=== PATIENT | female | born 1990 | race Caucasian/White ===

== ENCOUNTER 2024-05-13 16:20 | Emergency (ER) | payer BC, SELFPAY ==
[2024-05-13 16:35] VITALS: BP 120/78; PULSE 89; RESP 18; TEMP 37; O2SAT 99
[2024-05-13 16:43] VITALS: BP 120/78; PULSE 89; RESP 18; TEMP 37; O2SAT 99
--- NOTE | 2024-05-13 17:17 | ED.URI ---
HPI - URI/Sore Throat General Chief Complaint: Upper Respiratory Infection Stated Complaint: pressure in ears/throat/head pressure Time Seen by Provider: 05/13/24 17:10 Source: patient, RN notes reviewed and old records reviewed Mode of arrival: ambulatory Limitations: no limitations History of Present Illness HPI Narrative: 33-year-old female presents to [facility] with complaints of bilateral ear pain with pressure for 2 weeks. Patient just completed oral antibiotics of amoxicillin and also is still taking Flonase nasal spray daily which she received from [place] visit she did on the 03 of May. Patient reports that she seemed to get better and then for past 4 days her symptoms have gotten worse. Patient reports that she still has some nasal congestion with drainage. MD elicited complaint: other (right ear pain) Onset (ago): day(s) (increased symptoms for 4 days initially ill 2 weeks ago) Severity: moderate Pain scale (0-10): 4 Able to tolerate fluids by mouth: Yes Treatments prior to arrival: other (completed antibiotic and continues with flonase daily) Related Data Home Medications Medication Instructions Recorded Confirmed fluticasone propionate 50 50 mcg intranasal DAILY 05/13/24 05/13/24 mcg/actuation nasal spray,suspension Allergies Allergy/AdvReac Type Severity Reaction Status Date / Time No Known Allergies Allergy Verified 05/13/24 16:42 Review of Systems Review of Systems: CONSTITUTIONAL: Denies malaise, chills, sweats, or fever. EYES: Denies visual changes, redness, or discharge. ENT: Reports rhinorrhea, congestion, sinus pain, bilateral otalgia and sore throat. CARDIOVASCULAR: Denies chest pain, palpitations, or edema. RESPIRATORY: Reports no cough.? Denies dyspnea. GASTROINTESTINAL: Denies abdominal pain, nausea, vomiting, diarrhea SKIN: Denies rash or itching. MUSCULOSKELETAL: Denies myalgia. NEUROLOGIC: Denies headache. All systems reviewed & are unremarkable except as noted in HPI and below PMFSH Social History Social History Smoking status: Never smoker Alcohol intake: never Comments At time of signature, agree with nursing past medical, surgical, social and family history. There is no relevant family history pertinent to the presenting complaint Exam Narrative: GENERAL: Well-appearing, well-nourished, and in no acute distress. HEAD: Normocephalic EYES: PERRLA, conjunctivae clear ENT: Nares clear, turbinates edematous and erythematous, clear discharge, some sinus pressure,. Mucous membranes moist Right TM red and bulging, Left. TM pearly mcginnis with dull light reflex ; no tragal tenderness. Oropharynx erythematous without lesions. Tonsils mildly enlarged and without exudate, no drooling, no hoarseness, no trismus, uvula midline.post nasal discharge noted. NECK: Supple. No lymphadenopathy CHEST: Clear to auscultation, breath sounds equal. No wheezing, rhonchi, rales, or stridor. No respiratory distress, speaks in full sentences.SAO2 99% on room air HEART: Regular rate and rhythm. No murmur heard. SKIN: Warm, dry, no rash. NEURO: Alert and oriented x3. PSYCH: Normal mood and affect Course Course Emergency Course: Patient is aware of diagnosis, understands and agrees to treatment plan.? Anticipatory guidance given.? Patient agrees to follow-up as directed and is aware of reasons to seek care at the emergency department. Portions of this record may have been created with voice recognition software Level of Care: Express Care Visit Vital Signs Vital signs: Vital Signs Temperature 37.0 C 05/13/24 16:35 Pulse Rate 89 05/13/24 16:35 Respiratory Rate 18 05/13/24 16:35 Blood Pressure 120/78 05/13/24 16:35 Pulse Oximetry 99 05/13/24 16:35 Oxygen Delivery Room Air 05/13/24 16:35 Temperature 37.0 C 05/13/24 16:43 Pulse Rate 89 05/13/24 16:43 Respiratory Rate 18 05/13/24 16:43 Blood Pressure 120/78 05/13/24 16:43 Pulse Oximetry 99 05/13/24 16:43 Oxygen Delivery Room Air 05/13/24 16:43 Reviewed MDM - URI/Sore Throat MDM Narrative Medical decision making narrative: Differential diagnosis considered: Sr virus, strep pharyngitis, allergic rhinitis, upper respiratory tract infection, sinusitis, rhinosinusitis, nasopharyngitis. viral pharyngitis, otitis media, otitis externa, pneumonia, bronchitis, viral cough syndrome, viral syndrome, and influenza.? Exam findings show no acute concerns or changes; patient is non-toxic appearing and is in no distress.? Patient is appropriate for outpatient treatment and follow-up. Differential Diagnosis Differential diagnosis: Likely upper respiratory infection, otitis media, sinusitis, viral infection and pharyngitis Medical Records Attestation: I reviewed the patient's medical records. Lab Data Attestation: I reviewed the patient's lab results. Critical Care Time Critical Care Time Critical Care Time: No Discharge Plan Discharge Clinical Impression: Otitis media, right Patient Disposition: Home, Self-Care Condition: Stable Instructions: Antibiotic Form, Ear Infection (GEN) Additional Instructions: Increase fluids especially juices and water [id number] cough and cold medicine of your choice for your symptoms Zyrtec Claritin or Jackeline daily Continue your Flonase nasal spray daily heat to the face 20-30 minutes 4-6 times a day for pain Salt water gargles, throat lozenges or throat sprays as desired Antibiotic as directed--finished the medication If your symptoms persist, change or worsen significantly before you can contact your personal physician then please, without delay, go to the emergency department for further evaluation. Follow-up with PCP in 7-10 days or sooner if needed Prescriptions: New amoxicillin-pot clavulanate 875-125 mg tablet 1 tablet PO Q12H Qty: 20 0RF No Action fluticasone propionate 50 mcg/actuation spray,suspension 50 mcg INTRANASAL DAILY Follow-up/Referrals: Bonifacio Rios MD [Primary Care Provider] - Time of Disposition: 17:23 Quality Douglas Coma Scale Eyes: Open Verbal: Oriented and Alert Motor: Follows Commands Douglas Coma Total Score: 15
== END 2024-05-13 17:25 | disposition home or self-care (01) ==
PROVIDERS: Emergency Provider Registered Nurse; PCP Family Medicine
DX: H66.91 Otitis media, unspecified, right ear (principal)
CPT/HCPCS: 99213; G0463

== ENCOUNTER 2024-06-01 09:23 | Emergency (ER) | payer BC, SELFPAY ==
[2024-06-01 09:28] VITALS: BP 107/72; PULSE 68; RESP 16; TEMP 36.6; O2SAT 100
--- NOTE | 2024-06-01 09:39 | ED.URI ---
HPI - URI/Sore Throat General Chief Complaint: Upper Respiratory Infection Stated Complaint: left ear/body aches/throat Time Seen by Provider: 06/01/24 09:59 Source: patient and RN notes reviewed Mode of arrival: ambulatory Limitations: no limitations History of Present Illness HPI Narrative: 33-year-old female presents with concern for earache, worse on the right. Reports she was treated for an ear infection at the beginning of the month. She reports she had improvements in her symptoms but did not have resolution of the fullness in her ears. Reports over the last couple days ears began hurting again with sore throat. She denies fever, aches, chills, sweats MD elicited complaint: other (ear pain) Related Data Home Medications ?Medication ?Instructions ?Recorded ?Confirmed ?Last Taken ?Type fluticasone propionate 50 50 mcg intranasal DAILY 05/13/24 06/01/24 Unknown History mcg/actuation nasal spray,suspension Allergies Allergy/AdvReac Type Severity Reaction Status Date / Time No Known Allergies Allergy Verified 06/01/24 09:52 Review of Systems Review of Systems: CONSTITUTIONAL: Denies malaise, chills, sweats, or fever. EYES: Denies visual changes, redness, or discharge. ENT: Reports rhinorrhea, congestion, otalgia and sore throat. CARDIOVASCULAR: Denies chest pain, palpitations, or edema. RESPIRATORY: Denies cough. Denies dyspnea. GASTROINTESTINAL: Denies abdominal pain, nausea, vomiting, diarrhea SKIN: Denies rash or itching. MUSCULOSKELETAL: Denies myalgia. NEUROLOGIC: Denies headache. All systems reviewed & are unremarkable except as noted in HPI and below PMFSH Social History Social History Smoking status: Never smoker Alcohol intake: never Comments At time of signature, agree with nursing past medical, surgical, social and family history. There is no relevant family history pertinent to the presenting complaint Exam Narrative: GENERAL: Well-appearing, well-nourished, and in no acute distress. HEAD: Normocephalic EYES: PERRLA, conjunctivae clear ENT: Nares clear. Mucous membranes moist. TM pearly mcginnis with dull light reflex bilaterally; no tragal tenderness. Oropharynx not erythematous without lesions. Tonsils not enlarged and without exudate, no drooling, no hoarseness, no trismus, uvula midline. NECK: Supple. No lymphadenopathy CHEST: Clear to auscultation, breath sounds equal. No wheezing, rhonchi, rales, or stridor. No respiratory distress, speaks in full sentences. HEART: Regular rate and rhythm. No murmur heard. SKIN: Warm, dry, no rash. NEURO: Alert and oriented x3. PSYCH: Normal mood and affect Course Course Emergency Course: Patient is aware of diagnosis, understands and agrees to treatment plan. Anticipatory guidance given. Patient agrees to follow-up as directed and is aware of reasons to seek care at the emergency department. Portions of this record may have been created with voice recognition software Level of Care: Express Care Visit Vital Signs Vital signs: Vital Signs Temperature 98 F 06/01/24 09:28 Pulse Rate 68 06/01/24 09:28 Respiratory Rate 16 06/01/24 09:28 Blood Pressure 107/72 06/01/24 09:28 Pulse Oximetry 100 06/01/24 09:28 Oxygen Delivery Room Air 06/01/24 09:28 Temperature 98 F 06/01/24 09:28 Pulse Rate 68 06/01/24 09:28 Respiratory Rate 16 06/01/24 09:28 Blood Pressure 107/72 06/01/24 09:28 Pulse Oximetry 100 06/01/24 09:28 Oxygen Delivery Room Air 06/01/24 09:28 Reviewed. MDM - URI/Sore Throat MDM Narrative Medical decision making narrative: Differential diagnosis considered: Sr virus, strep pharyngitis, allergic rhinitis, upper respiratory tract infection, sinusitis, rhinosinusitis, nasopharyngitis. viral pharyngitis, otitis media, otitis externa, pneumonia, bronchitis, viral cough syndrome, viral syndrome, and influenza. Exam findings show no acute concerns or changes; patient is non-toxic appearing and is in no distress. Patient is appropriate for outpatient treatment and follow-up. Lab Data Attestation: I reviewed the patient's lab results. Critical Care Time Critical Care Time Critical Care Time: No Discharge Plan Discharge Clinical Impression: Fluid level behind tympanic membrane of both ears Patient Disposition: Home, Self-Care Condition: Stable Instructions: Fluid In The Ear (Serous Otitis Media) (ED) Additional Instructions: Pseudoephedrine as directed Recommend antihistamine such as Benadryl at night time and Zyrtec or Jackeline during the day until symptoms improve Flonase nasal spray, 2 sprays in each nostril once daily until symptoms improve Also, recommend symptomatic treatment includes: rest, fluids, and increase humidity of the air at home. Recommend Acetaminophen as directed on the bottle to reduce fever, pain Please schedule a follow-up visit with your personal physician for further evaluation and treatment within 3-5days. If your symptoms persist, change or worsen significantly before you can contact your personal physician then please, without delay, go to the emergency department for further evaluation. Patient Language: Croatian Prescriptions: New pseudoephedrine HCl [12 Hour Decongestant] 120 mg tablet extended release 120 mg PO Q12H PRN (Reason: nasal congestion) Qty: 20 0RF No Action fluticasone propionate 50 mcg/actuation spray,suspension 50 mcg INTRANASAL DAILY Follow-up/Referrals: Bonifacio Rios MD [Primary Care Provider] - Time of Disposition: 10:05
--- OUTSIDE RECORDS SUMMARY | 2024-06-08 15:31 | XMS_ITS | Referral Summary ---
Author Organization [facility] [address] Address [address] [place] [address] Phone Care Team Providers Care Food Cart Attendant Name Role Phone Bonifacio Rios MD Primary Care Provider + [phone] Ashley Shaffer MD Unavailable [phone] Allergies No known active allergies Medications levonorgestreL-eth inyl estrad (LUTERA) 0.1-20 mg-mcg per tabletIndications: Surveillance of previously prescribed contraceptive pill Take 1 tablet by mouth daily Take continuousl y, each pack a 21 day supply. 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 on file Last Filed Vital Signs Vital Sign Reading Time Taken Comments Blood Pressure 118/68 06/19/2020 8:52 AM PEDIATRIC NURSE PRACTITIONER Pulse 78 04/04/2017 1:16 PM CDT Temperature 36 ??C (96.8 ??F) 06/19/2020 8:52 AM PEDIATRIC NURSE PRACTITIONER Respiratory Rate 12 04/04/2017 1:16 PM CDT Oxygen Saturation 97% 04/04/2017 1:16 PM CDT Inhaled Oxygen Concentration - - Weight 76.2 kg (168 lb) 06/19/2020 8:52 AM PEDIATRIC NURSE PRACTITIONER Height 165.1 cm (5' 5 ) 06/19/2020 8:52 AM PEDIATRIC NURSE PRACTITIONER Body Mass Index 27.96 06/19/2020 8:52 AM PEDIATRIC NURSE PRACTITIONER Plan of Treatment Not on file Insurance [facility] CHOICE PLUS [employer] O[employer] Care Teams Food Cart Attendant Relationship Specialty Start Date End Date Bonifacio Rios MD [facility] - General 09/02/12 Ashley Shaffer MD [address] [place] [address] Obstetrics and Gynecology 03/28/17
--- OUTSIDE RECORDS SUMMARY | 2024-06-08 15:31 | XMS_ITS | Encounter Summary ---
Author Organization [facility] Address [address] [place] [address] Care Team Providers Care Handkerchief Sample Clerk Name Role Phone Bonifacio Rios MD Primary Care Provider [phone] Ashley Shaffer MD Unavailable + [phone] Reason for Visit * Reason Onset Date Comments bcp refill request 05/03/2020 Encounter Details Date Type Department Care Team (Late st Contact Info) Description 05/03/2020 Telephone [facility] [address] [place] [address] Asya Choudhary BOX SPRING MAKER [address] [address] bcp refill request Social History Tobacco Use Types Packs/Day Years Used Date Smoking Tobacco: Never Smokeless Tobacco: Never Alcohol Use Standard Drinks/Week Comments Yes 0 (1 standard drink = 0.6 oz pur e alcohol) Comments No Sex and Gender Information Value Date Recorded Sex Assigned at Not on file Legal Sex Female 12:30 AM EQUAL OPPORTUNITY DIRECTOR Gender Identity Not on file Sexual Orientation Not on file 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 She uses the [facility] in [place] pharmacy. CBN [phone] L OPPORTUNITY DIRECTOR documented in this encounter Plan of Treatment Not on file documented as of this encounter Visit Diagnoses Not on filedocumented in this encounter Care Teams Handkerchief Sample Clerk Relationship Specialty Start Date End Date Bonifacio Rios MD PCP - General 09/02/12 Ashley Shaffer MD [address] [place] [address] Obstetrics and Gynecology 03/28/17 documented as of this encounter
--- OUTSIDE RECORDS SUMMARY | 2024-06-08 15:31 | XMS_ITS | Clinical Summary ---
Author Organization [facility] [address] Address [address] [place] [address] Phone Care Team Providers Care Cable Ferryboat Operator Name Role Phone Bonifacio Rios MD Primary Care Provider + [phone] Ashley Shaffer MD Unavailable [phone] Allergies No known active allergies Medications levonorgestreL-eth inyl estrad (LUTERA) 0.1-20 mg-mcg per tabletIndications: Surveillance of previously prescribed contraceptive pill Take 1 tablet by mouth daily Take continuousl y, each pack a 21 day supply. 84 tablet 5 1 Active Active Problems No known active problems Surgical History Surgery Date Site/Laterality Comments NO PAST SURGERIES Medical History Medical History Date Comments Severe dysmenorrhea 2008 controlled w ith OCP's Family History Medical History Relation Name Comments Hyperlipidemia Father Uterine cancer Maternal Grandmother Relation Name Status Comments Father Maternal Grandmother Social History Tobacco Use Types Packs/Day Years Used Date Smoking Tobacco: Never Smokeless Tobacco: Never Tobacco Cessation:Counseling Given: Yes Alcohol Use Standard Drinks/Week Comments Yes 0 (1 standard drink = 0.6 oz pur e alcohol) Comments No Sex and Gender Information Value Date Recorded Sex Assigned at Not on file Legal Sex Female 12:30 AM PROSTHETIST Gender Identity Not on file Sexual Orientation Not on file 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 on file Obstetrics History Para Term AB IAB SAB Ectopic Multiple Livin g Live Births 0 0 0 0 0 0 0 0 0 0 0 Last Filed Vital Signs Vital Sign Reading Time Taken Comments Blood Pressure 118/68 06/19/2020 8:52 AM PROSTHETIST Pulse 78 04/04/2017 1:16 PM CDT Temperature 36 ??C (96.8 ??F) 06/19/2020 8:52 AM PROSTHETIST Respiratory Rate 12 04/04/2017 1:16 PM CDT Oxygen Saturation 97% 04/04/2017 1:16 PM CDT Inhaled Oxygen Concentration - - Weight 76.2 kg (168 lb) 06/19/2020 8:52 AM PROSTHETIST Height 165.1 cm (5' 5 ) 06/19/2020 8:52 AM PROSTHETIST Body Mass Index 27.96 06/19/2020 8:52 AM PROSTHETIST Plan of Treatment Not on file Insurance [facility] CHOICE PLUS [facility] HMO/PPO Address: [address] [address] [place] [address] [employer] Care Teams Cable Ferryboat Operator Relationship Specialty Start Date End Date Bonifacio Rios MD PCP - General 09/02/12 Ashley Shaffer MD [address] [place] [address] Obstetrics and Gynecology 03/28/17
--- OUTSIDE RECORDS SUMMARY | 2024-06-08 15:31 | XMS_ITS | Encounter Summary ---
Author Organization [facility] Address [address] [place] [address] Care Team Providers Care Metal Pourer Name Role Phone Bonifacio Rios MD Primary Care Provider [phone] Ashley Shaffer MD Unavailable + [phone] Encounter Details Date Type Department Care Team (Late st Contact Info) Description 05/03/2020 Orders Only [facility] [address] [place] [address] Asya Choudhary, SUPERVISOR DIE CASTING [address] [address] Surveillance of previously prescribed contraceptive pill Social History Tobacco Use Types Packs/Day Years Used Date Smoking Tobacco: Never Smokeless Tobacco: Never Alcohol Use Standard Drinks/Week Comments Yes 0 (1 standard drink = 0.6 oz pur e alcohol) Comments No Sex and Gender Information Value Date Recorded Sex Assigned at Not on file Legal Sex Female 12:30 AM COKE BURNER Gender Identity Not on file Sexual Orientation Not on file 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 84 tablet 05/03/2020 1 documented in this encounter Plan of Treatment Not on file documented as of this encounter Visit Diagnoses Diagnosis Surveillance of previously prescribed contraceptive pill documented in this encounter Discontinued Medications Medication Sig Discontinue Reason Start Date End Da te levonorgestreL-ethinyl estrad (LUTERA) 0.1-20 mg-mcg per tabletIndications:Surveill ance of previously prescribed contraceptive pill Take 1 tablet by mouth daily Take continuously, each pack a 21 day supply. Reorder 04/10/2020 05/03/2020 documented as of this encounter Care Teams Metal Pourer Relationship Specialty Start Date End Date Bonifacio Rios MD PCP - General 09/02/12 Ashley Shaffer MD [address] [place] [address] Obstetrics and Gynecology 03/28/17 documented as of this encounter
--- OUTSIDE RECORDS SUMMARY | 2024-06-08 15:31 | XMS_ITS | Encounter Summary ---
Author Organization [facility] Address [address] [place] [address] Care Team Providers Care Pipe Setter Name Role Phone Bonifacio Rios MD Primary Care Provider [phone] Ashley Shaffer MD Unavailable + [phone] Reason for Visit * Reason Comments Gynecologic Exam Encounter Details Date Type Department Care Team (Late st Contact Info) Description 06/19/2020 9:00 AM OPHTHALMOLOGY SURGICAL TECHNICIAN Office Visit [facility] [address] [place] [phone] Asya Choudhary, HARDWARE TEST ENGINEER [address] [place] [id number] Routine gynecological examination (Primary Dx); Surveillance of previously prescribed contraceptive pill; Screening for malignant neoplasm of the cervix Social History Tobacco Use Types Packs/Day Years Used Date Smoking Tobacco: Never Smokeless Tobacco: Never Alcohol Use Standard Drinks/Week Comments Yes 0 (1 standard drink = 0.6 oz pur e alcohol) Comments No Sex and Gender Information Value Date Recorded Sex Assigned at Not on file Legal Sex Female 12:30 AM OPHTHALMOLOGY SURGICAL TECHNICIAN Gender Identity Not on file Sexual Orientation Not on file 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 on file documented as of this encounter Last Filed Vital Signs Vital Sign Reading Time Taken Comments Blood Pressure 118/68 06/19/2020 8:52 AM OPHTHALMOLOGY SURGICAL TECHNICIAN Pulse - - Temperature 36 ??C (96.8 ??F) 06/19/2020 8:52 AM OPHTHALMOLOGY SURGICAL TECHNICIAN Respiratory Rate - - Oxygen Saturation - - Inhaled Oxygen Concentration - - Weight 76.2 kg (168 lb) 06/19/2020 8:52 AM OPHTHALMOLOGY SURGICAL TECHNICIAN Height 165.1 cm (5' 5 ) 06/19/2020 8:52 AM OPHTHALMOLOGY SURGICAL TECHNICIAN Body Mass Index 27.96 06/19/2020 8:52 AM OPHTHALMOLOGY SURGICAL TECHNICIAN documented in this encounter Ordered Prescriptions Prescription Sig Dispense Quantity Refills Last Filled Start Date End Date levonorgestreL-ethi nyl estrad (LUTERA) 0.1-20 mg-mcg per tabletIndications:S urveillance of previously prescribed contraceptive pill Take 1 tablet by mouth daily Take continuously , each pack a 21 day supply. 84 tablet 5 06/19/2020 documented in this encounter Progress Notes * Asya Choudhary, HARDWARE TEST ENGINEER - 06/19/2020 9:00 AM CST Images from the original note were not included. Well Woman Exam Subjective: Iman Ashley is a 29 y.o. year old G0 who presents for annual sluice tender exam. Last Pap 05/18/18 was NILM. No h/o abnormal. Uses OCP, Lutera, for contraception and h/o menorrhagia and dysmenorrhea. She takes placebo pills every three packs with no complaints. Denies any vaginal or urinary concerns. Menstrual History: Patient's last menstrual period was 04/30/2020. Sexual History: OB History 0 Para 0 Term 0 0 AB 0 Living 0 SAB 0 TAB 0 Ectopic 0 Multiple 0 Live Births 0 Past Medical History: Diagnosis Date ??? Severe dysmenorrhea 2008 controlled with OCP's Current Outpatient Medications: ??? levonorgestreL-ethinyl estrad (LUTERA) 0.1-20 mg-mcg per tablet, Take 1 tablet by mouth daily Take continuously, each pack a 21 day supply., Disp: 84 tablet, Rfl: 5 No Known Allergies Family History Problem Relation Age of Onset ??? Hyperlipidemia Father ??? Uterine cancer Maternal Grandmother Social History Socioeconomic History ??? Marital status: Single Spouse name: None ??? Number of children: 0 ??? Years of education: None ??? Highest education level: None Occupational History ??? 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 Financial resource strain: None ??? Food insecurity Worry: None Inability: None ??? Transportation needs Medical: None Non-medical: None Tobacco Use ??? Smoking status: Never Smoker ??? Smokeless tobacco: Never Used Substance and Sexual Activity ??? Alcohol use: Yes ??? Drug use: No ??? Sexual activity: Yes Partners: Male control/protection: OCP Lifestyle ??? Physical activity Days per week: None Minutes per session: None ??? Stress: None Relationships ??? Social connections Talks on phone: None Gets together: None Attends roman catholic service: None Active member of club or organization: None Attends meetings of clubs or organizations: None Relationship status: None ??? Intimate partner violence Fear of current or ex partner: None Emotionally abused: None Physically abused: None Forced sexual activity: None Other Topics Concern ??? None Social History Narrative ??? None Review of Systems Constitutional: Negative for fatigue, fever and unexpected weight change. Respiratory: Negative for shortness of breath and wheezing. Cardiovascular: Negative for chest pain and palpitations. Gastrointestinal: Negative for abdominal pain, blood in stool, nausea and vomiting. Genitourinary: Negative for dysuria, frequency, hematuria, urgency, vaginal bleeding and vaginal discharge. Skin: Negative for rash. Objective: BP 118/68 Temp 96.8 ??F Ht 165.1 cm (5' 5 ) Wt 168 lb (76.2 kg) LMP 04/30/2020 No BMI 27.96 kg/m?? Physical Exam Constitutional: Appearance: She is well-developed. Cardiovascular: Rate and Rhythm: Normal rate and regular rhythm. Pulmonary: Effort: Pulmonary effort is normal. Breath sounds: Normal breath sounds. Chest: Breasts: Right: No mass or tenderness. Left: No mass or tenderness. Abdominal: Palpations: Abdomen is soft. Tenderness: There is no abdominal tenderness. Genitourinary: Rectum normal, vagina normal and uterus normal. Right labia: normal. Left Labia: normal. No vaginal discharge. Right adnexa: normal. Left adnexa: normal. Cervix: Normal exam. Genitourinary Comments: Pap collected. Musculoskeletal: General: No tenderness. Skin: General: Skin is warm and dry. Neurological: Mental Status: She is alert and oriented to person, place, and time. Psychiatric: Behavior: Behavior normal. Assessment and Plan: Iman Ashley is a 29 y.o. female who presents for a well woman exam. 1. Routine gynecological examination Screening guidelines reviewed. Pap collected. Mammogram ordered. Will follow up annually or prn. 2. Surveillance of previously prescribed contraceptive pill Tolerating well, will continue. - levonorgestreL-ethinyl estrad (LUTERA) 0.1-20 mg-mcg per tablet; Take 1 tablet by mouth daily Take continuously, each pack a 21 day supply. Dispense: 84 tablet; Refill: 5 Recommended screenings and preventive care discussed: Breast cancer: Self Breast Exams, Mammogram: Not indicated Pap smear: Performed Diet and exercise discussed. Contraception reviewed. Asya Choudhary NP 06/19/2020 Cosigned by Jagruti Amin MD at 06/26/2020 5:07 PM OPHTHALMOLOGY SURGICAL TECHNICIAN HALMOLOGY SURGICAL TECHNICIAN HALMOLOGY SURGICAL TECHNICIAN documented in this encounter Miscellaneous Notes * Addendum Note - Selam Feldman LPN - 06/19/2020 9:00 AM CSTAddended by: SELAM FELDMAN on: 06/19/2020 09:47 AM Modules accepted: Orders HALMOLOGY SURGICAL TECHNICIAN documented in this encounter Plan of Treatment Not on file documented as of this encounter Visit Diagnoses Diagnosis Routine gynecological examination- Primary Surveillance of previously prescribed contraceptive pill Screening for malignant neoplasm of the cervix documented in this encounter Discontinued Medications Medication Sig Discontinue Reason Start Date End Da te levonorgestreL-ethinyl estrad (LUTERA) 0.1-20 mg-mcg per tabletIndications:Surveill ance of previously prescribed contraceptive pill Take 1 tablet by mouth daily Take continuously, each pack a 21 day supply. Reorder 05/03/2020 06/19/2020 documented as of this encounter Care Teams Pipe Setter Relationship Specialty Start Date End Date Bonifacio Rios MD PCP - General 09/02/12 Ashley Shaffer MD [address] [address] Obstetrics and Gynecology 03/28/17 documented as of this encounter
--- OUTSIDE RECORDS SUMMARY | 2024-06-08 15:32 | XMS_ITS | Encounter Summary ---
Author Organization [facility] Healthcare Address [address] [place] [address] Care Team Providers Care Carpenter Name Role Phone Bonifacio Rios MD Primary Care Provider [phone] Encounter Details Date Type Department Care Team (Late st Contact Info) Description 10/12/2013 3:23 PM CDT - 10/12/2013 11:59 PM CDT Hospital Encounter [facility] Ashley Bragg MD [address] [place] [phone] Exposure to sexually transmitted disease (STD) Social History Tobacco Use Types Packs/Day Years Used Date Smoking Tobacco: Never Alcohol Use Standard Drinks/Week Comments Yes 0 (1 standard drink = 0.6 oz pur e alcohol) Comments Unknown Sex and Gender Information Value Date Recorded Sex Assigned at Not on file Legal Sex Female 12:30 AM CELL CHANGER Gender Identity Not on file Sexual Orientation Not on file documented as of this encounter Plan of Treatment Not on file documented as of this encounter Visit Diagnoses Diagnosis Exposure to sexually transmitted disease (STD) Contact with or exposure to venereal diseases documented in this encounter Care Teams Carpenter Relationship Specialty Start Date End Date Bonifacio Rios MD PCP - General 09/02/12 documented as of this encounter
--- OUTSIDE RECORDS SUMMARY | 2024-06-08 15:32 | XMS_ITS | Encounter Summary ---
Author Organization [facility] Care Team Providers Care Quantitative Associate Name Role Phone Bonifacio Rios MD Primary Care Provider [phone] Ashley Shaffer MD Unavailable [phone] Encounter Details Date Type Department Care Team (Latest Contact Info) Description 06/15/2019 Travel Social History Tobacco Use Types Packs/Day Years Used Date Smoking Tobacco: Never Smokeless Tobacco: Never Alcohol Use Standard Drinks/Week Comments Yes 0 (1 standard drink = 0.6 oz pur e alcohol) Comments No Sex and Gender Information Value Date Recorded Sex Assigned at Not on file Legal Sex Female 12:30 AM FIRE TOWER KEEPER Gender Identity Not on file Sexual Orientation Not on file 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
--- OUTSIDE RECORDS SUMMARY | 2024-06-08 15:32 | XMS_ITS | Encounter Summary ---
Author Organization [facility] Address [address] [place] [address] Care Team Providers Care Registered Safety Engineer Name Role Phone Bonifacio Rios MD Primary Care Provider [phone] Ashley Shaffer MD Unavailable + [phone] Encounter Details Date Type Department Care Team (Late st Contact Info) Description 06/11/2019 Orders Only [facility] [address] [place] [phone] Asya Choudhary, PROFESSOR OF LATIN AMERICAN STUDIES [address] [address] Social History Tobacco Use Types Packs/Day Years Used Date Smoking Tobacco: Never Smokeless Tobacco: Never Alcohol Use Standard Drinks/Week Comments Yes 0 (1 standard drink = 0.6 oz pur e alcohol) Comments No Sex and Gender Information Value Date Recorded Sex Assigned at Not on file Legal Sex Female 12:30 AM CLINICAL RN MANAGER Gender Identity Not on file Sexual Orientation Not on file 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 on file documented as of this encounter Ordered Prescriptions Prescription Sig Dispense Quantity Refills Last Filled Start Date End Date levonorgestrel-eth inyl estrad (LUTERA) 0.1-20 mg-mcg per tablet Take 1 tablet by mouth daily 28 tablet 06/11/2019 06/15/2019 documented in this encounter Plan of Treatment Not on file documented as of this encounter Visit Diagnoses Not on filedocumented in this encounter Discontinued Medications Medication Sig Discontinue Reason Start Date End Da te levonorgestrel-ethinyl estrad (LUTERA) 0.1-20 mg-mcg per tablet Take 1 tablet by mouth daily Reorder 05/24/2019 06/11/2019 documented as of this encounter Care Teams Registered Safety Engineer Relationship Specialty Start Date End Date Bonifacio Rios MD PCP - General 09/02/12 Ashley Shaffer MD [address] [place] [address] Obstetrics and Gynecology 03/28/17 documented as of this encounter
--- OUTSIDE RECORDS SUMMARY | 2024-06-08 15:32 | XMS_ITS | Encounter Summary ---
Author Organization [facility] Healthcare Address [address] [place] [address] Care Team Providers Care It Infrastructure Engineer Name Role Phone Bonifacio Rios MD Primary Care Provider [phone] Encounter Details Date Type Department Care Team (Late st Contact Info) Description 10/12/2013 8:00 PM CDT - 10/12/2013 11:59 PM CDT Hospital Encounter CH Ashley Bragg MD [address] [place] [address] Screening for malignant neoplasm of cervix Social History Tobacco Use Types Packs/Day Years Used Date Smoking Tobacco: Never Alcohol Use Standard Drinks/Week Comments Yes 0 (1 standard drink = 0.6 oz pur e alcohol) Comments Unknown Sex and Gender Information Value Date Recorded Sex Assigned at Not on file Legal Sex Female 12:30 AM HARNESS MENDER Gender Identity Not on file Sexual Orientation Not on file documented as of this encounter Plan of Treatment Not on file documented as of this encounter Procedures Procedure Name Priority Date/Time Associated Diagnosis Comments GENITAL FLUID GONORRHEA AMPLIFIED RNA, LIQUID THIN LAYER Routine 10/12/2013 2:30 PM CDT GENITAL FLUID CHLAMYDIA AMPLIFIED RNA, LIQUID THIN LAYER Routine 10/12/2013 2:30 PM CDT CYTOLOGY 10/12/2013 documented in this encounter Results * Genital fluid Chlamydia Amplified RNA, liquid thin layer (10/12/2013 2:30 PM CDT) Chlamydia trachomatis, PCR, genital swab Negative Negative HISTORICAL RESULTS Comment: This test has been developed to maximize the sensitivity of detection of infection while minimizing false positives, with the combined goals of enabling treatment of infection and interrupting the spread of infection, and is intended for medical purposes. Any result should be interpreted together with the clinical presentation and risk assessment, particularly the prevalence of infection in the patient's demographic group. ??Significant discrepancies should be evaluated by additional measures. Genital 10/12/2013 2:30 PM CDT Ashley Shaffer MD LAB BLOOD ORDERABLE S Final Result Performing Organization Address [facility] Phone Number HISTORICAL RESULTS * Genital fluid Gonorrhea amplified RNA, liquid thin layer (10/12/2013 2:30 PM CDT) Gonorrheae (GC) DNA, thin prep Negative Negative HISTORICAL RESULTS Comment: This test has been developed to maximize the sensitivity of detection of infection while minimizing false positives, with the combined goals of enabling treatment of infection and interrupting the spread of infection, and is intended for medical purposes. Any result should be interpreted together with the clinical presentation and risk assessment, particularly the prevalence of infection in the patient's demographic group. ??Significant discrepancies should be evaluated by additional measures. Genital 10/12/2013 2:30 PM CDT Ashley Shaffer MD LAB BLOOD ORDERABLE S Final Result Performing Organization Address [facility] de Phone Number HISTORICAL RESULTS * Cytology (10/12/2013) Narrative 10/12/2013 Ordered by an unspecified provider. [facility] Provider LAB CYTOLOGY ORDERABLES F inal Result documented in this encounter Visit Diagnoses Diagnosis Screening for malignant neoplasm of cervix Screening for malignant neoplasm of the cervix documented in this encounter Care Teams It Infrastructure Engineer Relationship Specialty Start Date End Date Bonifacio Rios MD PCP - General 09/02/12 documented as of this encounter
--- OUTSIDE RECORDS SUMMARY | 2024-06-08 15:32 | XMS_ITS | Encounter Summary ---
Author Organization [facility] Healthcare Address [address] [place] [address] Care Team Providers Care Jack Winder Name Role Phone Bonifacio Rios MD Primary Care Provider [phone] Ashley Shaffer MD Unavailable + [phone] Reason for Visit * Diagnostic Lab (Routine) - Closed Specialty Diagnoses / Procedures Referred By James mitchell Referred To Contact Lab Diagnoses Cervical cancer screening Procedures Cytology Ashley Shaffer MD Phone: tel: fax: Referral ID Status Reason Start Date Expiration Date Visits Re quested Visits Authorized [id number] Closed 05/18/2018 11/27/2019 1 1 Encounter Details Date Type Department Care Team (Late st Contact Info) Description 05/19/2018 Orders Only [address] [address] Ashley Shaffer MD [address] [place] [phone] Cervical cancer screening Social History Tobacco Use Types Packs/Day Years Used Date Smoking Tobacco: Never Smokeless Tobacco: Never Alcohol Use Standard Drinks/Week Comments Yes 0 (1 standard drink = 0.6 oz pur e alcohol) Comments No Sex and Gender Information Value Date Recorded Sex Assigned at Not on file Legal Sex Female 12:[address] INTERPRETER Gender Identity Not on file Sexual Orientation Not on file 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 [address] INTERPRETER documented in this encounter Plan of Treatment Not on file documented as of this encounter Procedures Procedure Name Priority Date/Time Associated Diagnosis Comments CYTOLOGY Routine 05/18/2018 12:[address] INTERPRETER Cervical cancer screening documented in this encounter Results * Cytology (05/18/2018 12:[address] INTERPRETER) Fluid 05/18/2018 12:[address] INTERPRETER 05/18/2018 12:[address] INTERPRETER Narrative PATHOLOGY - 05/20/2018 4:[address] INTERPRETER [facility] Department of Pathology [address] [place] [address] Final Report Patient Name: ??IMAN HORNKimberlyn Address: ??[address], ?? [place], [place] ??[address] Gender: ??F : ??1990 (Age: 27) Service: ??Laboratory Location: ??Lab Hospital #: ??[id number] Patient Type: ?? Ref Lab Taken: ??05/18/2018 Received: ??05/18/2018 Accessioned:: ??05/19/2018 Reported: ??05/20/2018 Physician(s): Dr. Ashley Shaffer M.D. Dr. Ashley Shaffer M.D. Diagnosis: Source of Specimen: ? SCREENING IMAGED PAP w/ Reflex HPV Specimen Adequacy: ?- Satisfactory for evaluation; endocervical/transformation zone component present General Category: ?- Negative for intraepithelial lesion or malignancy ?? AMBREEN Carr(ASCP) AMBREEN Conrad(ASCP) Report Electronically Reviewed and Signed Out By ??AMBREEN Conrad(ASCP) ??05/20/2018 16:39:32 Specimen(s) Received: A: SCREENING IMAGED PAP w/ Reflex HPV Clinical History: Last Menstrual Period: 05/10/18 The Pap test is a screening test used to aid in the detection of cervical cancer and its precursors. ??It should not be the sole means by which malignant and premalignant lesions are diagnosed. ??Both false negative and false positive results may occur. ?? It also has poor sensitivity for the detection of endometrial lesions and should not be used to evaluate suspected endometrial abnormalities. ??For these reasons it is most important to obtain Pap tests at regular intervals. The performance characteristics of some immunohistochemical stains, fluorescence in-situ hybridization tests and immunophenotyping by flow cytometry cited in this report (if any) were determined by the Surgical Pathology Department at [facility] as part of an ongoing quality system manager program and in compliance with federally mandated regulations drawn from the Clinical Laboratory Improvement Act of 1988 (CLIA '88). ??Some of these tests rely on the use of analyte specific reagents and are subject to specific labeling requirements by the US Food and Drug Administration. ??Such diagnostic tests may only be performed in a facility that is certified by the Department of Health and Human Services as a high complexity laboratory under CLIA '88. The FDA has determined that such clearance or approval is not necessary. ??This test is used for clinical purposes. ??It should not be regarded as investigational or for research. ??Nevertheless, federal rules concerning the medical use of analyte specific reagents require that the following disclaimer be attached to the report: This test was developed and its performance characteristics determined by the Surgical Pathology Department [facility]. ??It has not been cleared or approved by the U. S. Food and Drug Administration. Ashley Shaffer MD LAB CYTOLOGY ORDERA BLES Final Result PATHOLOGY [address] [place] [address] documented in this encounter Visit Diagnoses Diagnosis Cervical cancer screening Screening for malignant neoplasm of the cervix documented in this encounter Care Teams Jack Winder Relationship Specialty Start Date End Date Bonifacio Rios MD PCP - General 09/02/12 Ashley Shaffer MD [address] [place] [address] Obstetrics and Gynecology 03/28/17 documented as of this encounter
--- OUTSIDE RECORDS SUMMARY | 2024-06-08 15:32 | XMS_ITS | Encounter Summary ---
Author Organization [facility] Healthcare Address [address] [place] [address] Care Team Providers Care Suction Worker Name Role Phone Bonifacio Rios MD Primary Care Provider [phone] Ashley Shaffer MD Unavailable + [phone] Encounter Details Date Type Department Care Team (Late st Contact Info) Description 04/04/2017 7:28 PM CDT - 04/04/2017 11:59 PM CDT Hospital Encounter [facility] OP INTERIM Ashley Shaffer MD [address] [place] [phone] Discharge Disposition: Discharge to home or self care Social History Tobacco Use Types Packs/Day Years Used Date Smoking Tobacco: Never Smokeless Tobacco: Never Alcohol Use Standard Drinks/Week Comments Yes 0 (1 standard drink = 0.6 oz pur e alcohol) Comments No Sex and Gender Information Value Date Recorded Sex Assigned at Not on file Legal Sex Female 12:30 AM HOEING ROW BOSS Gender Identity Not on file Sexual Orientation Not on file 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 84 tablet 4 04/04/2017 04/04/2018 documented as of this encounter Discharge Disposition Disposition Code Departure Means Destination Discharge to home or self care documented in this encounter Plan of Treatment Not on file documented as of this encounter Procedures Procedure Name Priority Date/Time Associated Diagnosis Comments GONORRHEA DNA, THIN PREP Routine 04/04/2017 7:29 PM CDT CHLAMYDIA DNA, THIN PREP Routine 04/04/2017 7:29 PM CDT CYTOLOGY Routine 04/04/2017 9:52 AM CDT CYTOLOGY 04/04/2017 12:00 AM CDT documented in this encounter Results * Gonorrhea DNA, Thin Prep (04/04/2017 7:29 PM CDT) Gonorrheae (GC) DNA, thin prep Negative Negative [facility] Comment: Interpretive Data This test has been developed to maximize [...] discrepancies should be evaluated by additional measures. Current Interpretive Data was last revised on 2015 Thin prep 04/04/2017 7:29 PM CDT 04/04/2017 7:29 PM CDT Ashley Shaffer MD LAB BLOOD ORDERABLE S Final Result [facility] [address] Department [place] [address] * Chlamydia DNA, Thin Prep (04/04/2017 7:29 PM CDT) Chlamydia Amplified RNA, Liquid-based pap Negative Negative [facility] Comment: Interpretive Data This test has been developed to maximize [...] discrepancies should be evaluated by additional measures. Current Interpretive Data was last revised on 2015 Thin prep 04/04/2017 7:29 PM CDT 04/04/2017 7:29 PM CDT Ashley Shaffer MD LAB BLOOD ORDERABLE S Final Result [facility] [address] Department [place] [address] * Cytology (04/04/2017 9:52 AM CDT) 04/04/2017 9:52 AM CDT 04/04/2017 9:52 AM CDT Narrative 04/08/2017 12:18 PM CDT [facility] Department of Pathology [address] [place], [place] [id number] Final Report ?Patient Name: IMAN HORN [address]: [address] [place] [address] Service: Laboratory ??[place], [place] ??[id number] Location: Lab Taken: 04/04/2017 Gender: F Received 04/04/2017 : 1990 (Age: 26) Hospital #: [id number] Accessioned: 04/07/2017 ?? Patient Type: [facility] Lab Reported 04/08/2017 Physician(s): Dr. Ashley Shaffer M.D. Dr. Ashley Shaffer M.D. ?? Diagnosis: Source of Specimen: ? SCREENING IMAGED PAP w/ Reflex HPV Specimen Adequacy: ?- Specimen satisfactory for interpretation; endocervical/transformation zone component absent or ?insufficient General Category: ?- Negative for intraepithelial lesion or malignancy ?? Sarah Jacob CT(ASCP) AMBREEN Conrad(ASCP) Report Electronically Reviewed and Signed Out By ??AMBREEN Conrad(ASCP) ??04/08/2017 12:18:55 Specimen(s) Received: A: SCREENING IMAGED PAP w/ Reflex HPV Clinical History: Last Menstrual Period: 03/16/17 Menstrual History: Routine Checkup Contraceptive History: Oral Contraceptives The Pap test is a screening test [...] determined by the Surgical Pathology Department at [facility] as part of an ongoing quality control inspector program and in compliance with federally mandated [...] characteristics determined by the Surgical Pathology Department [facility]. ??It has not been cleared or approved by the U. S. Food and Drug Administration. Ashley Shaffer MD LAB CYTOLOGY ORDERA BLES Final Result * CYTOLOGY (04/04/2017 12:00 AM CDT) Narrative 04/04/2017 12:00 AM CDT Ordered by an unspecified provider. Historical Provider LAB CYTOLOGY ORDERABLES F inal Result documented in this encounter Visit Diagnoses Not on filedocumented in this encounter Care Teams Suction Worker Relationship Specialty Start Date End Date Bonifacio Rios MD PCP - General 09/02/12 Ashley Shaffer MD [address] [place] [address] Obstetrics and Gynecology 03/28/17 documented as of this encounter
--- OUTSIDE RECORDS SUMMARY | 2024-06-08 15:32 | XMS_ITS | Encounter Summary ---
Author Organization [facility] Address [address] [facility] [address] [place] [address] Care Team Providers Care Nut Processing Supervisor Name Role Phone Bonifacio Rios MD Primary Care Provider + [phone] Ashley Shaffer MD Unavailable [phone] Reason for Referral * Diagnostic Lab (Routine) - Closed Specialty Diagnoses / Procedures Referred By James mitchell Referred To Contact Lab Diagnoses Cervical cancer screening Procedures Cytology Ashley Shaffer MD Phone: tel: fax: Referral ID Status Reason Start Date Expiration Date Visits Re quested Visits Authorized [id number] Closed 05/18/2018 11/27/2019 1 1 CORPORATE MANAGER Reason for Visit * Reason Comments Gynecologic Exam Encounter Details Date Type Department Care Team (Late st Contact Info) Description 05/18/2018 2:00 PM BODY CORPORATE MANAGER Office Visit [facility] [address] [place] [address] Ashley Shaffer MD [address] [place] [phone] Encounter for gynecological examination (Primary Dx); Cervical cancer screening Social History Tobacco Use Types Packs/Day Years Used Date Smoking Tobacco: Never Smokeless Tobacco: Never Tobacco Cessation:Counseling Given: Yes Alcohol Use Standard Drinks/Week Comments Yes 0 (1 standard drink = 0.6 oz pur e alcohol) Comments No Sex and Gender Information Value Date Recorded Sex Assigned at Not on file Legal Sex Female 12:30 AM BODY CORPORATE MANAGER Gender Identity Not on file Sexual Orientation Not on file 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 on file documented as of this encounter Last Filed Vital Signs Vital Sign Reading Time Taken Comments Blood Pressure 110/80 05/18/2018 1:52 PM BODY CORPORATE MANAGER Pulse - - Temperature - - Respiratory Rate - - Oxygen Saturation - - Inhaled Oxygen Concentration - - Weight 67.6 kg (149 lb) 05/18/2018 1:52 PM BODY CORPORATE MANAGER Height 162.6 cm (5' 4 ) 05/18/2018 1:52 PM BODY CORPORATE MANAGER Body Mass Index 25.58 05/18/2018 1:52 PM BODY CORPORATE MANAGER documented in this encounter Ordered Prescriptions Prescription Sig Dispense Quantity Refills Last Filled Start Date End Date levonorgestrel-eth inyl estrad (AVIANE,LESSINA) 0.1-20 mg-mcg per tablet Take 1 tablet by mouth daily. 84 tablet 4 05/18/2018 05/24/2019 documented in this encounter Progress Notes * Ashley Shaffer - 05/18/2018 2:00 PM CST Images from the original note were not included. Assessment: ICD-9-CM ICD-10-CM 1. Encounter for gynecological examination V72.31 Z01.419 Plan: ?? Pap smear obtained. ?? Renewed Rx for Aviane OCP's. HPI: Iman is a 27 y.o. SWF G0, who presents for annual exam. She has a history of menorrhagia and severe dysmenorrhea, which is well-controlled with OCP's. She denies any other demand planning analyst concerns. History: I have updated the EPIC record to reflect current allergies, medications, medical history, surgicalhistory, social history, family history, and the active problem list. Past Medical History: Diagnosis Date ??? Severe dysmenorrhea 2008 controlled with OCP's Past Surgical History: Procedure Laterality Date ??? NO PAST SURGERIES Social History Social History ??? Marital status: Single Spouse name: N/A ??? Number of children: 0 ??? 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 Smoking status: Never Smoker ??? Smokeless tobacco: Never Used ??? Alcohol use Yes ??? Drug use: No ??? Sexual activity: Yes Partners: Male control/ protection: OCP Family History Problem Relation Age of Onset ??? Hyperlipidemia Father ??? Uterine cancer Maternal Grandmother Allergies: No Known Allergies Medications: Current Outpatient Prescriptions: ??? levonorgestrel-ethinyl estrad (AVIANE,LESSINA) 0.1-20 mg-mcg per tablet, Take 1 tablet by mouthdaily., Disp: 84 tablet, Rfl: 4 Review of Systems: The patient-completed Review of Systems was reviewed and was scanned as an attachment to this encounter. Physical Exam: Patient's last menstrual period was 05/10/2018. Wt Readings from Last 3 Encounters: 05/18/18 149 lb (67.6 kg) 04/04/17 137 lb (62.1 kg) 03/15/16 126 lb (57.2 kg) Body mass index is 25.58 kg/m??. Vitals: 05/18/18 1352 BP: 110/80 Weight: 149 lb (67.6 kg) Height: 162.6 cm (5' 4 ) General: WNWD female in NAD. Mental status: Alert and oriented X 3, with calm, cooperative affect. HEENT: Normocephalic. Neck: Supple, without masses or thyromegaly. Lungs: CTA. Heart:: RRR, without abnormal sounds. Breasts: No masses, nipple discharge, or skin dimpling. Abdomen: Soft, non-distended. No masses, tenderness, or hernias. Lymph nodes: No lymphadenopathy in axillary, inguinal, or supraclavicular regions. Skin: Warm and dry, without abnormal rashes or suspicious moles on examined skin. Pelvic exam: External genitalia: Normale female. No external lesions. Anus and perineum: Intact. No visible lesions. Urethral meatus: Slay[place], without prolapse or lesions. Vagina: [place], well-rugated. Cervix: [place]; os closed. No visible lesions. Friable. Uterus: No palpable abnormalities. Adnexa: No palpable masses or tenderness. Bladder and urethra: Nontender, without masses. Ashley Shaffer MD CORPORATE MANAGER documented in this encounter Miscellaneous Notes * Addendum Note - Alecia Muhammad MA - 05/18/2018 2:00 PM CSTAddended by: ALECIA MUHAMMAD on: 05/18/2018 02:06 PM Modules accepted: Orders CORPORATE MANAGER documented in this encounter Plan of Treatment Not on file documented as of this encounter Results * Cytology (05/18/2018 12:30 PM BODY CORPORATE MANAGER) Fluid 05/18/2018 12:3 0 PM BODY CORPORATE MANAGER 05/18/2018 12:30 PM BODY CORPORATE MANAGER Narrative PATHOLOGY CH - 05/20/2018 4:39 PM BODY CORPORATE MANAGER [facility] Department of Pathology [address] [place], [place] [id number] Final Report Patient Name: ??IMAN HORN Address: ??[facility], ?? [place], [place] ??[address] Gender: ??F : ??1990 (Age: 27) Service: ??Laboratory Location: ??Lab Hospital #: ??[id number] Patient Type: ?? Ref Lab Taken: ??05/18/2018 [...] determined by the Surgical Pathology Department at [facility] as part of an ongoing air quality consultant program and in compliance with federally mandated [...] characteristics determined by the Surgical Pathology Department [facility]. ??It has not been cleared or approved by the U. S. Food and Drug Administration. Ashley Shaffer MD LAB CYTOLOGY ORDERA BLES Final Result PATHOLOGY [address] [place] [address] documented in this encounter Visit Diagnoses Diagnosis Encounter for gynecological examination- Primary Cervical cancer screening Screening for malignant neoplasm of the cervix Cervical cancer screening Screening for malignant neoplasm of the cervix documented in this encounter Discontinued Medications Medication Sig Discontinue Reason Start Date End Da te levonorgestrel-ethinyl estrad (AVIANE,LESSINA) 0.1-20 mg-mcg per tablet Take 1 tablet by mouth daily. Reorder 05/14/2018 05/18/2018 documented as of this encounter Care Teams Nut Processing Supervisor Relationship Specialty Start Date End Date Bonifacio Rios MD PCP - General 09/02/12 Ashley Shaffer MD [address] [place] [address] Obstetrics and Gynecology 03/28/17 documented as of this encounter
--- OUTSIDE RECORDS SUMMARY | 2024-06-08 15:32 | XMS_ITS | Encounter Summary ---
Author Organization [facility] Address [address] [facility] [address] [place] [address] Care Team Providers Care County Health Officer Name Role Phone Bonifacio Rios MD Primary Care Provider [phone] Ashley Shaffer MD Unavailable + [phone] Reason for Visit * Reason Comments Gynecologic Exam Encounter Details Date Type Department Care Team (Late st Contact Info) Description 06/15/2019 9:00 AM ORAL AND MAXILLOFACIAL SURGERY RESIDENT Office Visit [facility] [address] [place] [phone] Asya Choudhary, BODY AND FENDER MECHANIC APPRENTICE [address] [place] [phone] Routine gynecological examination (Primary Dx); Surveillance of previously prescribed contraceptive pill Social History Tobacco Use Types Packs/Day Years Used Date Smoking Tobacco: Never Smokeless Tobacco: Never Tobacco Cessation:Counseling Given: Yes Alcohol Use Standard Drinks/Week Comments Yes 0 (1 standard drink = 0.6 oz pur e alcohol) Comments No Sex and Gender Information Value Date Recorded Sex Assigned at Not on file Legal Sex Female 12:30 AM ORAL AND MAXILLOFACIAL SURGERY RESIDENT Gender Identity Not on file Sexual Orientation Not on file 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 on file documented as of this encounter Last Filed Vital Signs Vital Sign Reading Time Taken Comments Blood Pressure 120/78 06/15/2019 8:57 AM ORAL AND MAXILLOFACIAL SURGERY RESIDENT Pulse - - Temperature - - Respiratory Rate - - Oxygen Saturation - - Inhaled Oxygen Concentration - - Weight 73.5 kg (162 lb) 06/15/2019 8:57 AM ORAL AND MAXILLOFACIAL SURGERY RESIDENT Height 162.6 cm (5' 4 ) 06/15/2019 8:57 AM ORAL AND MAXILLOFACIAL SURGERY RESIDENT Body Mass Index 27.81 06/15/2019 8:57 AM ORAL AND MAXILLOFACIAL SURGERY RESIDENT documented in this encounter Ordered Prescriptions Prescription Sig Dispense Quantity Refills Last Filled Start Date End Date levonorgestrel-ethi nyl estrad (LUTERA) 0.1-20 mg-mcg per tabletIndications:S urveillance of previously prescribed contraceptive pill Take 1 tablet by mouth daily Take continuously , each pack a 21 day supply. 84 tablet 3 06/15/2019 0 documented in this encounter Progress Notes * Asya Choudhary, BODY AND FENDER MECHANIC APPRENTICE - 06/15/2019 9:00 AM CST Images from the original note were not included. Well Woman Exam Subjective: Iman Ashley is a 28 y.o. 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 Last Pap 05/18/18 was NILM. Uses OCP, Lutera, for contraception and h/o menorrhagia and dysmenorrhea. She takes tablets continuously and has an acceptable menses every three months. Denies any vaginal or urinary concerns. Menstrual History: Patient's last menstrual period was 04/04/2019 (exact date). Sexual History: OB History 0 Para 0 Term 0 0 AB 0 Living 0 SAB 0 TAB 0 Ectopic 0 Multiple 0 Live Births 0 Past Medical History: Diagnosis Date ??? Severe dysmenorrhea 2008 controlled with OCP's Current Outpatient Medications: ??? levonorgestrel-ethinyl estrad (LUTERA) 0.1-20 mg-mcg per tablet, Take 1 tablet by mouth daily Take continuously, each pack a 21 day supply., Disp: 84 tablet, Rfl: 3 No Known Allergies Family History Problem Relation Age of Onset ??? Hyperlipidemia Father ??? Uterine cancer Maternal Grandmother Social History Socioeconomic History ??? Marital status: Single Spouse name: None ??? Number of children: 0 ??? Years of education: None ??? Highest education level: None Occupational History ??? 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 Financial resource strain: None ??? Food insecurity: Worry: None Inability: None ??? Transportation needs: Medical: None Non-medical: None Tobacco Use ??? Smoking status: Never Smoker ??? Smokeless tobacco: Never Used Substance and Sexual Activity ??? Alcohol use: Yes ??? Drug use: No ??? Sexual activity: Yes Partners: Male control/protection: OCP Lifestyle ??? Physical activity: Days per week: None Minutes per session: None ??? Stress: None Relationships ??? Social connections: Talks on phone: None Gets together: None Attends advent service: None Active member of club or organization: None Attends meetings of clubs or organizations: None Relationship status: None ??? Intimate partner violence: Fear of current or ex partner: None [...] discharge. Skin: Negative for rash. Objective: BP 120/78 Ht 162.6 cm (5' 4 ) Wt 162 lb (73.5 kg) LMP 04/04/2019 (Exact Date) BMI 27.81 kg/m?? Physical Exam Constitutional: Appearance: She is well-developed. Cardiovascular: Rate and Rhythm: Normal rate and regular rhythm. Pulmonary: Effort: Pulmonary effort is normal. Breath sounds: Normal breath sounds. Chest: Breasts: Right: No mass or tenderness. Left: No mass or tenderness. Abdominal: Palpations: Abdomen is soft. Tenderness: There is no tenderness. Genitourinary: Rectum normal, vagina normal and uterus normal. Right labia: normal. Left Labia: normal. No vaginal discharge. Right adnexa: normal. Left adnexa: normal. Cervix: Normal exam. Musculoskeletal: General: No tenderness. Skin: General: Skin is warm and dry. Neurological: Mental Status: She is alert and oriented to person, place, and time. Psychiatric: Behavior: Behavior normal. Assessment and Plan: Iman Ashley is a 28 y.o. female who presents for a well woman exam. 1. Routine gynecological examination Screening guidelines reviewed. Pap due by 2020. Will follow up annually or prn. 2. Surveillance of previously prescribed contraceptive pill Tolerating well, will continue to take placebo pills every 3 months. - levonorgestrel-ethinyl estrad (LUTERA) 0.1-20 mg-mcg per tablet; Take 1 tablet by mouth daily Take continuously, each pack a 21 day supply. Dispense: 84 tablet; Refill: 3 Recommended screenings and preventive care discussed: Breast cancer: Self Breast Exams, Mammogram: Not indicated Pap smear: Not Indicated Diet and exercise discussed. Contraception reviewed. Asya Choudhary NP 06/15/2019 Cosigned by Jagruti Amin MD at 06/15/2019 11:02 AM ORAL AND MAXILLOFACIAL SURGERY RESIDENT AND MAXILLOFACIAL SURGERY RESIDENT AND MAXILLOFACIAL SURGERY RESIDENT documented in this encounter Plan of Treatment Not on file documented as of this encounter Visit Diagnoses Diagnosis Routine gynecological examination- Primary Surveillance of previously prescribed contraceptive pill documented in this encounter Discontinued Medications Medication Sig Discontinue Reason Start Date End Da te levonorgestrel-ethinyl estrad (LUTERA) 0.1-20 mg-mcg per tablet Take 1 tablet by mouth daily Reorder 06/11/2019 06/15/2019 documented as of this encounter Care Teams County Health Officer Relationship Specialty Start Date End Date Bonifacio Rios MD PCP - General 09/02/12 Ashley Shaffer MD [address] [place] [address] Obstetrics and Gynecology 03/28/17 documented as of this encounter
--- OUTSIDE RECORDS SUMMARY | 2024-06-08 15:32 | XMS_ITS | Encounter Summary ---
Author Organization [facility] Address [address] [place] [address] Phone Care Team Providers Care Tread Cutter Name Role Phone Bonifacio Rios MD Primary Care Provider + [phone] Ashley Shaffer MD Unavailable + [phone] Encounter Details Date Type Department Care Team (Late st Contact Info) Description 04/14/2017 Telephone [facility] [address] [place] [address] Bronwyn Feldman LPN Social History Tobacco Use Types Packs/Day Years Used Date Smoking Tobacco: Never Smokeless Tobacco: Never Alcohol Use Standard Drinks/Week Comments Yes 0 (1 standard drink = 0.6 oz pur e alcohol) Comments No Sex and Gender Information Value Date Recorded Sex Assigned at Not on file Legal Sex Female 12:30 AM HARNESS BUILDER Gender Identity Not on file Sexual Orientation Not on file 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 ESS BUILDER * Telephone Encounter - Bronwyn Feldman LPN - 04/14/2017 10:02 AM HARNESS BUILDER ----- Message from Ashley Shaffer MD sent at 04/13/2017 7:57 AM HARNESS BUILDER ----- Normal pap. ESS BUILDER documented in this encounter Plan of Treatment Not on file documented as of this encounter Visit Diagnoses Not on filedocumented in this encounter Care Teams Tread Cutter Relationship Specialty Start Date End Date Bonifacio Rios MD PCP - General 09/02/12 Ashley Shaffer MD [address] [place] [address] Obstetrics and Gynecology 03/28/17 documented as of this encounter
--- OUTSIDE RECORDS SUMMARY | 2024-06-08 15:32 | XMS_ITS | Encounter Summary ---
Author Organization [facility] Address [address] [place] [address] Phone Care Team Providers Care Clerk Telegraph Service Name Role Phone Bonifacio Rios MD Primary Care Provider [phone] Ashley Shaffer MD Unavailable [phone] Reason for Visit * Reason Comments Gynecologic Exam Encounter Details Date Type Department Care Team (Late st Contact Info) Description 04/04/2017 1:10 PM CDT Office Visit [facility] [address] [place] [address] Ashley Shaffer MD [address] [address] Encounter for gynecological examination (Primary Dx) Social History Tobacco Use Types Packs/Day Years Used Date Smoking Tobacco: Never Smokeless Tobacco: Never Tobacco Cessation:Counseling Given: Yes Alcohol Use Standard Drinks/Week Comments Yes 0 (1 standard drink = 0.6 oz pur e alcohol) Comments No Sex and Gender Information Value Date Recorded Sex Assigned at Not on file Legal Sex Female 12:30 AM FLEET MANAGER Gender Identity Not on file Sexual Orientation Not on file 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 on file documented as of this encounter Last Filed Vital Signs Vital Sign Reading Time Taken Comments Blood Pressure 110/80 04/04/2017 1:16 PM CDT Pulse 78 04/04/2017 1:16 PM CDT Temperature - - Respiratory Rate 12 04/04/2017 1:16 PM CDT Oxygen Saturation 97% 04/04/2017 1:16 PM CDT Inhaled Oxygen Concentration - - Weight 62.1 kg (137 lb) 04/04/2017 1:16 PM CDT Height 162.6 cm (5' 4 ) 04/04/2017 1:16 PM CDT Body Mass Index 23.52 04/04/2017 1:16 PM CDT documented in this encounter Ordered Prescriptions Prescription Sig Dispense Quantity Refills Last Filled Start Date End Date levonorgestrel-eth inyl estrad (AVIANE) 0.1-20 mg-mcg per tablet Take 1 tablet by mouth daily. 84 tablet 4 04/04/2017 04/04/2018 documented in this encounter Progress Notes * Ashley Shaffer - 04/04/2017 1:10 PM CDT Images from the original note were not included. Assessment: ICD-9-CM ICD-10-CM 1. Encounter for gynecological examination V72.31 Z01.419 Plan: ?? Pap smear with GC/CT testing obtained. ?? Continued on Aviane OCP's. HPI: Iman is a 26 y.o. SWF , who presents for annual exam. She has a history of very severe dysmenorrhea, as well as menorrhagia, that is well controlled on Aviane OCP's. She would like to stay on these, and denies any concession supervisor concerns. 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 Smoking status: Never Smoker ??? Smokeless tobacco: Never Used ??? Alcohol use Yes ??? Drug use: No ??? Sexual activity: Yes Partners: Male control/ protection: OCP Other Topics Concern ??? Not on file Social History Narrative ??? No narrative on file Family History Problem Relation Age of Onset ??? Hyperlipidemia Father ??? Uterine cancer Maternal Grandmother Allergies: No Known Allergies Medications: Current Outpatient Prescriptions: ??? levonorgestrel-ethinyl estrad (AVIANE) 0.1-20 mg-mcg per tablet, Take 1 tablet by mouth daily.,Disp: 84 tablet, Rfl: 4 Review of Systems: The patient-completed Review of Systems was reviewed and was scanned as an attachment to this encounter. Physical Exam: Patient's last menstrual period was 03/16/2017 (exact date). Wt Readings from Last 3 Encounters: 04/04/17 137 lb (62.1 kg) 03/15/16 126 lb (57.2 kg) 12/13/14 125 lb (56.7 kg) Body mass index is 23.52 kg/m??. Vitals: 04/04/17 1316 BP: 110/80 Pulse: 78 Resp: 12 SpO2: 97% Weight: 137 lb (62.1 kg) Height: 162.6 cm (5' 4 ) [...] perineum: Intact. No visible lesions. Urethral meatus: [place], without prolapse or lesions. Vagina: [place], well-rugated. Cervix: [place]; os closed. No visible lesions. Uterus: No palpable abnormalities. Adnexa: No palpable masses or tenderness. Bladder and urethra: [place], without masses. Ashley Shaffer MD documented in this encounter Plan of Treatment Not on file documented as of this encounter Visit Diagnoses Diagnosis Encounter for gynecological examination- Primary documented in this encounter Discontinued Medications Medication Sig Discontinue Reason Start Date End Da te AVIANE 0.1-20 mg-mcg per tablet TAKE 1 TABLET BY MOUTH EVERY DAY Reorder 03/21/2017 04/04/2017 documented as of this encounter Care Teams Clerk Telegraph Service Relationship Specialty Start Date End Date Bonifacio Rios MD PCP - General 09/02/12 Ashley Shaffer MD [address] [place] [id number] Obstetrics and Gynecology 03/28/17 documented as of this encounter
--- OUTSIDE RECORDS SUMMARY | 2024-06-08 15:32 | XMS_ITS | Encounter Summary ---
Author Organization [facility] Address [address] [place] [address] Care Team Providers Care Laborer Dairy Farm Name Role Phone Bonifacio Rios MD Primary Care Provider [phone] Ashley Shaffer MD Unavailable + [phone] Reason for Visit * Reason Onset Date Comments Med Refill 05/24/2019 Encounter Details Date Type Department Care Team (Late st Contact Info) Description 05/24/2019 Telephone [facility] [address] [place] [address] Bonifacio Rios MD [address] [place] [address] Med Refill Social History Tobacco Use Types Packs/Day Years Used Date Smoking Tobacco: Never Smokeless Tobacco: Never Alcohol Use Standard Drinks/Week Comments Yes 0 (1 standard drink = 0.6 oz pur e alcohol) Comments No Sex and Gender Information Value Date Recorded Sex Assigned at Not on file Legal Sex Female 12:30 AM RENEWABLE ENERGY PROJECT MANAGER Gender Identity Not on file Sexual Orientation Not on file 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 Shaffer is no longer at [facility]. She is due for annual. ERX'd 1 month of OCP's to [facility] and patient will call back to schedule annual with Asya Choudhary GANTRY RIGGER. WABLE ENERGY PROJECT MANAGER * Telephone Encounter - Kaylene Denis - 05/24/2019 12:51 PM CST Pt called wondering why she can't refill her control? Wesleydeng Nhi n# [phone] patient WABLE ENERGY PROJECT MANAGER documented in this encounter Plan of Treatment Not on file documented as of this encounter Visit Diagnoses Not on filedocumented in this encounter Discontinued Medications Medication Sig Discontinue Reason Start Date End Da te levonorgestrel-ethinyl estrad (AVIANE,LESSINA) 0.1-20 mg-mcg per tablet Take 1 tablet by mouth daily. Reorder 05/18/2018 05/24/2019 documented as of this encounter Care Teams Laborer Dairy Farm Relationship Specialty Start Date End Date Bonifacio Rios MD PCP - General 09/02/12 Ashley Shaffer MD [address] [place] [address] Obstetrics and Gynecology 03/28/17 documented as of this encounter
--- OUTSIDE RECORDS SUMMARY | 2024-06-08 15:32 | XMS_ITS | Encounter Summary ---
Author Organization [facility] Healthcare Address [address] [place] [address] Care Team Providers Care Performing Arts Technicians Name Role Phone Bonifacio Rios MD Primary Care Provider [phone] Encounter Details Date Type Department Care Team (Late st Contact Info) Description 12/13/2014 6:36 PM CDT - 12/13/2014 11:59 PM CDT Hospital Encounter [facility] Ashley Bragg MD [address] [place] [address] Screening for malignant neoplasm of cervix Social History Tobacco Use Types Packs/Day Years Used Date Smoking Tobacco: Never Alcohol Use Standard Drinks/Week Comments Yes 0 (1 standard drink = 0.6 oz pur e alcohol) Comments Unknown Sex and Gender Information Value Date Recorded Sex Assigned at Not on file Legal Sex Female 12:30 AM INFERTILITY MEDICAL ASSISTANT Gender Identity Not on file Sexual Orientation Not on file documented as of this encounter Plan of Treatment Not on file documented as of this encounter Procedures Procedure Name Priority Date/Time Associated Diagnosis Comments GENITAL FLUID GONORRHEA AMPLIFIED RNA, LIQUID THIN LAYER Routine 12/13/2014 9:29 PM CDT GENITAL FLUID CHLAMYDIA AMPLIFIED RNA, LIQUID THIN LAYER Routine 12/13/2014 9:29 PM CDT CYTOLOGY 12/13/2014 documented in this encounter Results * Genital fluid Chlamydia Amplified RNA, liquid thin layer (12/13/2014 9:29 PM CDT) Chlamydia trachomatis, PCR, genital swab [...] should be evaluated by additional measures. Genital 12/13/2014 9:29 PM CDT Ashley Shaffer MD LAB BLOOD ORDERABLE S Final Result Performing Organization Address [facility] Phone Number HISTORICAL RESULTS * Genital fluid Gonorrhea amplified RNA, liquid thin layer (12/13/2014 9:29 PM CDT) Gonorrheae (GC) DNA, thin prep [...] should be evaluated by additional measures. Genital 12/13/2014 9:29 PM CDT Ashley Shaffer MD LAB BLOOD ORDERABLE S Final Result Performing Organization Address [facility] de Phone Number HISTORICAL RESULTS * Cytology (12/13/2014) Narrative 12/13/2014 Ordered by an unspecified provider. [facility] Provider LAB CYTOLOGY ORDERABLES F inal Result documented in this encounter Visit Diagnoses Diagnosis Screening for malignant neoplasm of cervix Screening for malignant neoplasm of the cervix documented in this encounter Care Teams Performing Arts Technicians Relationship Specialty Start Date End Date Bonifacio Rios MD PCP - General 09/02/12 documented as of this encounter
--- OUTSIDE RECORDS SUMMARY | 2024-06-08 15:32 | XMS_ITS | Encounter Summary ---
Author Organization [facility] Medical Group Address [address] [place] [address] Care Team Providers Care Digital Forensic Examiner Name Role Phone Bonifacio Rios MD Primary Care Provider [phone] Ashley Shaffer MD Unavailable + [phone] Encounter Details Date Type Department Care Team (Late st Contact Info) Description 04/10/2020 Orders Only [facility] [address] [place] [address] Asya Choudhary, COLD REDUCTION ROLLER [address] [address] Surveillance of previously prescribed contraceptive pill Social History Tobacco Use Types Packs/Day Years Used Date Smoking Tobacco: Never Smokeless Tobacco: Never Alcohol Use Standard Drinks/Week Comments Yes 0 (1 standard drink = 0.6 oz pur e alcohol) Comments No Sex and Gender Information Value Date Recorded Sex Assigned at Not on file Legal Sex Female 12:30 AM PARQUET FLOOR LAYER Gender Identity Not on file Sexual Orientation [...] pack a 21 day supply. 84 tablet 04/10/2020 0 documented in this encounter Plan of Treatment Not on file documented as of this encounter Visit Diagnoses Diagnosis Surveillance of previously prescribed contraceptive pill documented in this encounter Discontinued Medications Medication Sig Discontinue Reason Start Date End Da te levonorgestrel-ethinyl estrad (LUTERA) 0.1-20 mg-mcg per tabletIndications:Surveill ance of previously prescribed contraceptive pill Take 1 tablet by mouth daily Take continuously, each pack a 21 day supply. Reorder 06/15/2019 04/10/2020 documented as of this encounter Care Teams Digital Forensic Examiner Relationship Specialty Start Date End Date Bonifacio Rios MD PCP - General 09/02/12 Ashley Shaffer MD [address] [place] [address] Obstetrics and Gynecology 03/28/17 documented as of this encounter
--- OUTSIDE RECORDS SUMMARY | 2024-06-08 15:32 | XMS_ITS | Encounter Summary ---
Author Organization [facility] Healthcare Address [address] [place] [address] Care Team Providers Care Carver Hand Name Role Phone Bonifacio Rios MD Primary Care Provider [phone] Encounter Details Date Type Department Care Team (Late st Contact Info) Description 12/13/2014 2:01 PM CDT - 12/13/2014 11:59 PM CDT Hospital Encounter CH Ashley Bragg MD [address] [place] [address] Exposure to sexually transmitted disease (STD) Social History Tobacco Use Types Packs/Day Years Used Date Smoking Tobacco: Never Alcohol Use Standard Drinks/Week Comments Yes 0 (1 standard drink = 0.6 oz pur e alcohol) Comments Unknown Sex and Gender Information Value Date Recorded Sex Assigned at Not on file Legal Sex Female 12:30 AM PASTEURISER OPERATOR Gender Identity Not on file Sexual Orientation Not on file documented as of this encounter Plan of Treatment Not on file documented as of this encounter Visit Diagnoses Diagnosis Exposure to sexually transmitted disease (STD) Contact with or exposure to venereal diseases documented in this encounter Care Teams Carver Hand Relationship Specialty Start Date End Date Bonifacio Rios MD PCP - General 09/02/12 documented as of this encounter
--- OUTSIDE RECORDS SUMMARY | 2024-06-08 15:32 | XMS_ITS | Encounter Summary ---
Author Organization [facility] Medical Group Address [address] [place] [address] Care Team Providers Care Case Management Social Worker Name Role Phone Bonifacio Rios MD Primary Care Provider [phone] Ashley Shaffer MD Unavailable + [phone] Encounter Details Date Type Department Care Team (Late st Contact Info) Description 05/22/2018 Telephone [facility] [address] [place] [address] Bronwyn Feldman LPN Social History Tobacco Use Types Packs/Day Years Used Date Smoking Tobacco: Never Smokeless Tobacco: Never Alcohol Use Standard Drinks/Week Comments Yes 0 (1 standard drink = 0.6 oz pur e alcohol) Comments No Sex and Gender Information Value Date Recorded Sex Assigned at Not on file Legal Sex Female 12:30 AM NEUROPSYCHOLOGY SERVICE DIRECTOR Gender Identity Not on file Sexual Orientation Not on file 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 OPSYCHOLOGY SERVICE DIRECTOR * Telephone Encounter - Bronwyn Feldman LPN - 05/22/2018 8:26 AM NEUROPSYCHOLOGY SERVICE DIRECTOR ----- Message from Ashley Shaffer MD sent at 05/21/2018 9:00 AM NEUROPSYCHOLOGY SERVICE DIRECTOR ----- Normal pap. OPSYCHOLOGY SERVICE DIRECTOR documented in this encounter Plan of Treatment Not on file documented as of this encounter Visit Diagnoses Not on filedocumented in this encounter Care Teams Case Management Social Worker Relationship Specialty Start Date End Date Bonifacio Rios MD PCP - General 09/02/12 Ashley Shaffer MD [address] [place] [address] Obstetrics and Gynecology 03/28/17 documented as of this encounter
--- OUTSIDE RECORDS SUMMARY | 2024-06-08 15:32 | XMS_ITS | Encounter Summary ---
Author Organization [facility] Healthcare Address [address] [place] [address] Care Team Providers Care Svp Research & Ebusiness Operations Name Role Phone Bonifacio Rios MD Primary Care Provider [phone] Ashley Shaffer MD Unavailable [phone] Encounter Details Date Type Department Care Team (Late st Contact Info) Description 05/19/2018 10:40 AM GROCERY TEAM MEMBER Lab [address] [address] Social History Tobacco Use Types Packs/Day Years Used Date Smoking Tobacco: Never Smokeless Tobacco: Never Alcohol Use Standard Drinks/Week Comments Yes 0 (1 standard drink = 0.6 oz pur e alcohol) Comments No Sex and Gender Information Value Date Recorded Sex Assigned at Not on file Legal Sex Female 12:30 AM GROCERY TEAM MEMBER Gender Identity Not on file Sexual Orientation Not on file 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
--- OUTSIDE RECORDS SUMMARY | 2024-06-08 15:32 | XMS_ITS | Encounter Summary ---
Author Organization [facility] Medical Group Address [address] [place] [address] Care Team Providers Care Advertising Sales Executive Name Role Phone Bonifacio Rios MD Primary Care Provider [phone] Ashley Shaffer MD Unavailable + [phone] Encounter Details Date Type Department Care Team (Late st Contact Info) Description 04/19/2020 Orders Only [facility] [address] [place] [phone] Asya Choudhary, BOOKBINDING MACHINE OPERATOR [address] [address] Social History Tobacco Use Types Packs/Day Years Used Date Smoking Tobacco: Never Smokeless Tobacco: Never Alcohol Use Standard Drinks/Week Comments Yes 0 (1 standard drink = 0.6 oz pur e alcohol) Comments No Sex and Gender Information Value Date Recorded Sex Assigned at Not on file Legal Sex Female 12:30 AM LIP CUTTER Gender Identity Not on file Sexual Orientation Not on file 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 on file documented as of this encounter Plan of Treatment Not on file documented as of this encounter Procedures Procedure Name Priority Date/Time Associated Diagnosis Comments THINPREP IMAGING PAP REFLEX HPV MRNA E6/E7 Routine 04/19/2020 9:30 AM LIP CUTTER documented in this encounter Results * ThinPrep Imaging Pap Reflex HPV mRNA E6/E7 (04/19/2020 9:30 AM LIP CUTTER) Pathologist [facility] INFORMATION: Khoa BenavidesMeliaAsmita Forman Comment:Routine exam LMP Khoa Forman Comment:05/03/20 Previous Pap Khoa BenavidesMeliaAsmita Forman Comment:INFORMATION NOT PROV IDED Prev. Bx Khoa MakaylaMeliaAsmita mitchell Dickson Comment:INFORMATION NOT PROV IDED SOURCE: Khoa MakaylaMeliaAsmita Forman Comment:Cervix, Endocervix Pap, specimen adequacy Khoa BenavidesMeliaAsmita Forman Comment: Satisfactory for evaluation. Endocervical/transformation zone component present. HPV interp Khoa BenavidesMeliaAsmita mitchell Dickson Comment:Negative for intraep ithelial lesion or malignancy. COMMENTS Khoa BenavidesMeliaAsmita Forman Comment: This Pap test has been evaluated with computer assisted technology. Diesel Engine Pipe Fitter Harley st BenavidesMeliaAsmita Forman Comment: DDS, CT(ASCP) CT screening location: [place] [address] [place] [address] Comment Khoa MakaylaMeliaAsmita mitchell Dickson Comment: EXPLANATORY NOTE: The Pap is a screening test for cervical cancer. It is not a diagnostic test and is subject to false negative and false positive results. It is most reliable when a satisfactory sample, regularly obtained, is submitted with relevant clinical findings and history, and when the Pap result is evaluated along with historic and current clinical information. 04/19/2020 9:30 AM LIP CUTTER 06/20/2020 4:01 AM LIP CUTTER Narrative [facility] - 06/21/2020 8:54 AM LIP CUTTER FASTING: UNKNOWN us Asya Choudhary BOOKBINDING MACHINE OPERATOR LAB PATHOLOGY ORDERABLES Final Result [facility] [place] [address] [place] [address] documented in this encounter Visit Diagnoses Not on filedocumented in this encounter Care Teams Advertising Sales Executive Relationship Specialty Start Date End Date Bonifacio Rios MD PCP - General 09/02/12 Ashley Shaffer MD [address] [place] [address] Obstetrics and Gynecology 03/28/17 documented as of this encounter
--- OUTSIDE RECORDS SUMMARY | 2024-06-08 15:32 | XMS_ITS | Encounter Summary ---
Author Organization [facility] Healthcare Address [address] [place] [address] Care Team Providers Care Core Man Name Role Phone Bonifacio Rios MD Primary Care Provider [phone] Encounter Details Date Type Department Care Team (Late st Contact Info) Description 03/15/2016 7:46 PM CDT - 03/15/2016 11:59 PM CDT Hospital Encounter CH Ashley Bragg MD [address] [place] [phone] Encounter for screening for malignant neoplasm of cervix Social History Tobacco Use Types Packs/Day Years Used Date Smoking Tobacco: Never Alcohol Use Standard Drinks/Week Comments Yes 0 (1 standard drink = 0.6 oz pur e alcohol) Comments Unknown Sex and Gender Information Value Date Recorded Sex Assigned at Not on file Legal Sex Female 12:30 AM TRIM SAWYER Gender Identity Not on file Sexual Orientation Not on file documented as of this encounter Medications at Time of Discharge levonorgestrel-et hinyl estrad (AUBRA) 0.1-20 mg-mcg per tablet TAKE 1 TABLET BY ORAL ROUTE EVERY DAY 3 Package 11 02/08/2015 03/20/2017 documented as of this encounter Plan of Treatment Not on file documented as of this encounter Procedures Procedure Name Priority Date/Time Associated Diagnosis Comments GENITAL FLUID GONORRHEA AMPLIFIED RNA, LIQUID THIN LAYER Routine 03/15/2016 7:48 PM CDT GENITAL FLUID CHLAMYDIA AMPLIFIED RNA, LIQUID THIN LAYER Routine 03/15/2016 7:48 PM CDT CYTOLOGY 03/15/2016 documented in this encounter Results * Genital fluid Chlamydia Amplified RNA, liquid thin layer (03/15/2016 7:48 PM CDT) Chlamydia trachomatis, PCR, genital swab Negative Negative CDR HISTORICAL RESULTS Comment: This test has been [...] should be evaluated by additional measures. Genital 03/15/2016 7:48 PM CDT Ashley Shaffer MD LAB BLOOD ORDERABLE S Final Result Performing Organization Address [facility] de Phone Number CDR HISTORICAL RESULTS * Genital fluid Gonorrhea amplified RNA, liquid thin layer (03/15/2016 7:48 PM CDT) Gonorrheae (GC) RNA, genital swab Negative Negative CDR HISTORICAL RESULTS Comment: This test has been [...] should be evaluated by additional measures. Genital 03/15/2016 7:48 PM CDT Ashley Shaffer MD LAB BLOOD ORDERABLE S Final Result Performing Organization Address [facility] Co de Phone Number CDR HISTORICAL RESULTS * Cytology (03/15/2016) Narrative 03/15/2016 Ordered by an unspecified provider. Historical Provider LAB CYTOLOGY ORDERABLES F inal Result documented in this encounter Visit Diagnoses Diagnosis Encounter for screening for malignant neoplasm of cervix documented in this encounter Care Teams Core Man Relationship Specialty Start Date End Date Bonifacio Rios MD PCP - General 09/02/12 documented as of this encounter
--- OUTSIDE RECORDS SUMMARY | 2024-06-08 15:32 | XMS_ITS | Encounter Summary ---
Author Organization [facility] Address [address] [facility] [facility] [address] [place] [address] Care Team Providers Care Security Operations Specialist Name Role Phone Bonifacio Rios MD Primary Care Provider [phone] Ashley Shaffer MD Unavailable + [phone] Reason for Visit * Reason Onset Date Comments Contraception 06/11/2019 Encounter Details Date Type Department Care Team (Late st Contact Info) Description 06/11/2019 Telephone [facility] [address] [place] [address] Asya Choudhary, DENTAL CHAIR ASSEMBLER [address] [place] [address] Contraception Social History Tobacco Use Types Packs/Day Years Used Date Smoking Tobacco: Never Smokeless Tobacco: Never Alcohol Use Standard Drinks/Week Comments Yes 0 (1 standard drink = 0.6 oz pur e alcohol) Comments No Sex and Gender Information Value Date Recorded Sex Assigned at Not on file Legal Sex Female 12:30 AM CROWN ATTACHER Gender Identity Not on file Sexual Orientation Not on file 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 Thanks. N ATTACHER * Telephone Encounter - Jeannine Rios - 06/11/2019 8:55 AM CST Pt called and has annual scheduled with Asya next week on but is due to start new pack of BCon Friday wanted to know if could get one more refill called in to [facility] please advise. N ATTACHER documented in this encounter Plan of Treatment Not on file documented as of this encounter Visit Diagnoses Not on filedocumented in this encounter Care Teams Security Operations Specialist Relationship Specialty Start Date End Date Bonifacio Rios MD PCP - General 09/02/12 Ashley Shaffer MD [address] [place] [address] Obstetrics and Gynecology 03/28/17 documented as of this encounter
--- OUTSIDE RECORDS SUMMARY | 2024-06-08 16:00 | XMS_ITS | Encounter Summary ---
Author Organization [facility] Address [address] [facility] [facility] [address] [place] [address] Care Team Providers Care Masonry Instructor Name Role Phone Bonifacio Rios MD Primary Care Provider [phone] Ashley Shaffer MD Unavailable + [phone] Encounter Details Date Type Department Care Team (Late st Contact Info) Description 06/11/2019 Orders Only [facility] [address] [place] [phone] Asya Choudhary, WOOL FLEECE SORTER [address] [address] Social History Tobacco Use Types Packs/Day Years Used Date Smoking Tobacco: Never Smokeless Tobacco: Never Alcohol Use Standard Drinks/Week Comments Yes 0 (1 standard drink = 0.6 oz pur e alcohol) Comments No Sex and Gender Information Value Date Recorded Sex Assigned at Not on file Legal Sex Female 12:30 AM SLUSHER OPERATOR Gender Identity Not on file Sexual [...] documented as of this encounter Care Teams Masonry Instructor Relationship Specialty Start Date End Date Bonifacio Rios MD PCP - General 09/02/12 Ashley Shaffer MD [address] [address] Obstetrics and Gynecology 03/28/17 documented as of this encounter
--- OUTSIDE RECORDS SUMMARY | 2024-06-08 16:00 | XMS_ITS | Clinical Summary ---
Author Organization [facility] [address] Address [address] [place] [address] Phone Care Team Providers Care Braid Folder Name Role Phone Bonifacio Rios MD Primary Care Provider + [phone] Ashley Shaffer MD Unavailable +[phone] Allergies No known active allergies Medications levonorgestreL-eth [...] on file Legal Sex Female 12:30 AM SEVERITY OF ILLNESS COORDINATOR Gender Identity Not on file Sexual Orientation [...] Comments Blood Pressure 118/68 06/19/2020 8:52 AM SEVERITY OF ILLNESS COORDINATOR Pulse 78 04/04/2017 1:16 PM CDT Temperature 36 ??C (96.8 ??F) 06/19/2020 8:52 AM SEVERITY OF ILLNESS COORDINATOR Respiratory Rate 12 04/04/2017 1:16 PM CDT Oxygen Saturation 97% 04/04/2017 1:16 PM CDT Inhaled Oxygen Concentration - - Weight 76.2 kg (168 lb) 06/19/2020 8:52 AM SEVERITY OF ILLNESS COORDINATOR Height 165.1 cm (5' 5 ) 06/19/2020 8:52 AM SEVERITY OF ILLNESS COORDINATOR Body Mass Index 27.96 06/19/2020 8:52 AM SEVERITY OF ILLNESS COORDINATOR Plan of Treatment Not on file Insurance [facility] CHOICE PLUS [employer] OOS Care Teams Braid Folder Relationship Specialty Start Date End Date Bonifacio Rios MD PCP - General 09/02/12 Ashley Shaffer MD [address] [place] [address] Obstetrics and Gynecology 03/28/17
--- OUTSIDE RECORDS SUMMARY | 2024-06-08 16:00 | XMS_ITS | Encounter Summary ---
Author Organization [facility] Address [address] [facility] [facility] [address] [place] [address] Care Team Providers Care Speech Therapy Director Name Role Phone Bonifacio Rios MD Primary Care Provider [phone] Ashley Shaffer MD Unavailable + [phone] Reason for Visit * Reason Comments Gynecologic Exam Encounter Details Date Type Department Care Team (Late st Contact Info) Description 06/15/2019 9:00 AM CARDIOLOGY MANAGER Office Visit [facility] [address] [place] [phone] Asya Choudhary, MANAGER BRIDGE [address] [place] [address] Routine gynecological examination (Primary Dx); Surveillance [...] on file Legal Sex Female 12:30 AM CARDIOLOGY MANAGER Gender Identity Not on file Sexual Orientation Not on file 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 on file documented as of this encounter Last Filed Vital Signs Vital Sign Reading Time Taken Comments Blood Pressure 120/78 06/15/2019 8:57 AM CARDIOLOGY MANAGER Pulse - - Temperature - - Respiratory Rate - - Oxygen Saturation - - Inhaled Oxygen Concentration - - Weight 73.5 kg (162 lb) 06/15/2019 8:57 AM CARDIOLOGY MANAGER Height 162.6 cm (5' 4 ) 06/15/2019 8:57 AM CARDIOLOGY MANAGER Body Mass Index 27.81 06/15/2019 8:57 AM CARDIOLOGY MANAGER documented in this encounter Ordered Prescriptions Prescription Sig Dispense Quantity Refills Last Filled Start Date End Date levonorgestrel-ethi nyl estrad (LUTERA) 0.1-20 mg-mcg per tabletIndications:S urveillance of previously prescribed contraceptive pill Take 1 tablet by mouth daily Take continuously , each pack a 21 day supply. 84 tablet 3 06/15/2019 0 documented in this encounter Progress Notes * Asya Choudhary, MANAGER BRIDGE - 06/15/2019 9:00 AM CST Images from the original note were not included. Well Woman Exam Subjective: Iman Ashley is a 28 y.o. 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 Last Pap 05/18/18 was NILM. 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 Financial resource strain: None [...] on phone: None Gets together: None Attends bahai service: None Active member of club or [...] Jagruti Amin MD at 06/15/2019 11:02 AM CARDIOLOGY MANAGER IOLOGY MANAGER IOLOGY MANAGER documented in this encounter Plan of [...] documented as of this encounter Care Teams Speech Therapy Director Relationship Specialty Start Date End Date Bonifacio Rios MD PCP - General 09/02/12 Ashley Shaffer MD [address] [place] [address] Obstetrics and Gynecology 03/28/17 documented as of this encounter
--- OUTSIDE RECORDS SUMMARY | 2024-06-08 16:00 | XMS_ITS | Encounter Summary ---
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
--- OUTSIDE RECORDS SUMMARY | 2024-06-08 16:00 | XMS_ITS | Encounter Summary ---
Author Organization [facility] Address [address] [facility] [address] [place] [address] Care Team Providers Care Launching Pad Mechanic Name Role Phone Bonifacio Rios MD Primary Care Provider [phone] Ashley Shaffer MD Unavailable + [phone] Reason for Visit * Reason Onset Date Comments Med Refill 05/24/2019 Encounter Details Date Type Department Care Team (Late st Contact Info) Description 05/24/2019 Telephone [facility] 1 [place] [phone] Bonifacio Rios MD [address] [place] [address] Med Refill Social History Tobacco Use Types Packs/Day Years Used Date Smoking Tobacco: Never Smokeless Tobacco: Never Alcohol Use Standard Drinks/Week Comments Yes 0 (1 standard drink = 0.6 oz pur e alcohol) Comments No Sex and Gender Information Value Date Recorded Sex Assigned at Not on file Legal Sex Female 12:30 AM MARKETING ASSISTANT RETAIL DIVISION Gender Identity Not on file Sexual Orientation [...] Telephone Encounter - Bronwyn Feldman LPN - 05/24/2019 1:30 PM MARKETING ASSISTANT RETAIL DIVISION Patient notified that Dr. Shaffer is no longer at [facility]. She is due for annual. ERX'd 1 month of OCP's to [facility] and patient will call back to schedule annual with Asya Choudhary VENEER MATCHER. ETING ASSISTANT RETAIL DIVISION * Telephone Encounter - Kaylene Denis - 05/24/2019 12:51 PM CST Pt called wondering why she can't refill her control? Wesleydeng Nhi n# [phone] patient ETING ASSISTANT RETAIL DIVISION documented in this encounter Plan of Treatment Not on file documented as of this encounter Visit Diagnoses Not on filedocumented in this encounter Discontinued Medications Medication Sig Discontinue Reason Start Date End Da te levonorgestrel-ethinyl estrad (AVIANE,LESSINA) 0.1-20 mg-mcg per tablet Take 1 tablet by mouth daily. Reorder 05/18/2018 05/24/2019 documented as of this encounter Care Teams Launching Pad Mechanic Relationship Specialty Start Date End Date Bonifacio Rios MD PCP - General 09/02/12 Ashley Shaffer MD [address] [place] [address] Obstetrics and Gynecology 03/28/17 documented as of this encounter
--- OUTSIDE RECORDS SUMMARY | 2024-06-08 16:00 | XMS_ITS | Encounter Summary ---
Author Organization [facility] Address [address] [facility] [address] [place] [address] Care Team Providers Care Space Control Agent Name Role Phone Bonifacio Rios MD Primary Care Provider [phone] Ashley Shaffer MD Unavailable + [phone] Encounter Details Date Type Department Care Team (Late st Contact Info) Description 04/19/2020 Orders Only [facility] [address] [place] [phone] Asya Choudhary, FOLLOW UP MANAGER [address] [address] Social History Tobacco Use Types Packs/Day Years Used Date Smoking Tobacco: Never Smokeless Tobacco: Never Alcohol Use Standard Drinks/Week Comments Yes 0 (1 standard drink = 0.6 oz pur e alcohol) Comments No Sex and Gender Information Value Date Recorded Sex Assigned at Not on file Legal Sex Female 12:30 AM FILEMAKER DEVELOPER Gender Identity Not on file Sexual Orientation Not on file 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 Detention Deputy Harley st BenavidesMeliaAsmita Forman Comment: DDS, CT(ASCP) CT screening location: [place] [address] [place] [address] Comment Khoa MakaylaMeliaAsmita mitchell Dickson Comment: EXPLANATORY [...] and current clinical information. 04/19/2020 9:30 AM FILEMAKER DEVELOPER 06/20/2020 4:01 AM FILEMAKER DEVELOPER Narrative [facility] - 06/21/2020 8:54 AM FILEMAKER DEVELOPER FASTING: UNKNOWN us Asya Choudhary FOLLOW UP MANAGER LAB PATHOLOGY ORDERABLES Final Result [facility] [place] [address] [place] [id number] documented in this encounter Visit Diagnoses Not on filedocumented in this encounter Care Teams Space Control Agent Relationship Specialty Start Date End Date Bonifacio Rios MD PCP - General 09/02/12 Ashley Shaffer MD [address] [address] Obstetrics and Gynecology 03/28/17 documented as of this encounter
--- OUTSIDE RECORDS SUMMARY | 2024-06-08 16:00 | XMS_ITS | Encounter Summary ---
Author Organization [facility] Address [address] [facility] [address] [place] [address] Care Team Providers Care Radio Technician Name Role Phone Bonifacio Rios MD Primary Care Provider [phone] Ashley Shaffer MD Unavailable + [phone] Reason for Visit * Reason Comments Gynecologic Exam Encounter Details Date Type Department Care Team (Late st Contact Info) Description 06/19/2020 9:00 AM HUMAN RESOURCE CONSULTANT Office Visit [facility] [address] [place] [phone] Asya Choudhary, MANUFACTURING QUALITY INSPECTOR [address] [place] [address] Routine gynecological examination (Primary Dx); Surveillance [...] on file Legal Sex Female 12:30 AM HUMAN RESOURCE CONSULTANT Gender Identity Not on file Sexual Orientation Not on file 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 on file documented as of this encounter Last Filed Vital Signs Vital Sign Reading Time Taken Comments Blood Pressure 118/68 06/19/2020 8:52 AM HUMAN RESOURCE CONSULTANT Pulse - - Temperature 36 ??C (96.8 ??F) 06/19/2020 8:52 AM HUMAN RESOURCE CONSULTANT Respiratory Rate - - Oxygen Saturation - - Inhaled Oxygen Concentration - - Weight 76.2 kg (168 lb) 06/19/2020 8:52 AM HUMAN RESOURCE CONSULTANT Height 165.1 cm (5' 5 ) 06/19/2020 8:52 AM HUMAN RESOURCE CONSULTANT Body Mass Index 27.96 06/19/2020 8:52 AM HUMAN RESOURCE CONSULTANT documented in this encounter Ordered Prescriptions Prescription Sig Dispense Quantity Refills Last Filled Start Date End Date levonorgestreL-ethi nyl estrad (LUTERA) 0.1-20 mg-mcg per tabletIndications:S urveillance of previously prescribed contraceptive pill Take 1 tablet by mouth daily Take continuously , each pack a 21 day supply. 84 tablet 5 06/19/2020 documented in this encounter Progress Notes * Asya Choudhary, MANUFACTURING QUALITY INSPECTOR - 06/19/2020 9:00 AM CST Images from the original note were not included. Well Woman Exam Subjective: Iman Ashley is a 29 y.o. year old G0 who presents for annual transition advisor exam. Last Pap 05/18/18 was NILM. 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 Financial resource strain: [...] on phone: None Gets together: None Attends anabaptist service: None Active member of club or [...] Jagruti Amin MD at 06/26/2020 5:07 PM HUMAN RESOURCE CONSULTANT N RESOURCE CONSULTANT N RESOURCE CONSULTANT documented in this encounter Miscellaneous Notes * Addendum Note - Selam Feldman LPN - 06/19/2020 9:00 AM CSTAddended by: SELAM FELDMAN on: 06/19/2020 09:47 AM Modules accepted: Orders N RESOURCE CONSULTANT documented in this encounter Plan of Treatment [...] documented as of this encounter Care Teams Radio Technician Relationship Specialty Start Date End Date Bonifacio Rios MD PCP - General 09/02/12 Ashley Shaffer MD [address] [place] [address] Obstetrics and Gynecology 03/28/17 documented as of this encounter
--- OUTSIDE RECORDS SUMMARY | 2024-06-08 16:00 | XMS_ITS | Encounter Summary ---
Author Organization [facility] Address [address] [facility] [address] [place] [address] Care Team Providers Care Ui Architect Name Role Phone Bonifacio Rios MD Primary Care Provider [phone] Ashley Shaffer MD Unavailable + [phone] Encounter Details Date Type Department Care Team (Late st Contact Info) Description 04/10/2020 Orders Only [facility] [address] [place] [address] Asya Choudhary, BUSINESS ANALYSIS ANALYST [address] [address] Surveillance of previously prescribed contraceptive pill Social History Tobacco Use Types Packs/Day Years Used Date Smoking Tobacco: Never Smokeless Tobacco: Never Alcohol Use Standard Drinks/Week Comments Yes 0 (1 standard drink = 0.6 oz pur e alcohol) Comments No Sex and Gender Information Value Date Recorded Sex Assigned at Not on file Legal Sex Female 12:30 AM ELECTRICAL LINESWORKER Gender Identity Not on file Sexual Orientation [...] documented as of this encounter Care Teams Ui Architect Relationship Specialty Start Date End Date Bonifacio Rios MD PCP - General 09/02/12 Ashley Shaffer MD [address] [place] [address] Obstetrics and Gynecology 03/28/17 documented as of this encounter
--- OUTSIDE RECORDS SUMMARY | 2024-06-08 16:00 | XMS_ITS | Referral Summary ---
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 file Last Filed Vital Signs Vital Sign Reading Time Taken Comments Blood Pressure 118/68 06/19/2020 8:52 AM PROCESS CONTROL SUPERVISOR Pulse 78 04/04/2017 1:16 PM CDT Temperature 36 ??C (96.8 ??F) 06/19/2020 8:52 AM PROCESS CONTROL SUPERVISOR Respiratory Rate 12 04/04/2017 1:16 PM CDT Oxygen Saturation 97% 04/04/2017 1:16 PM CDT Inhaled Oxygen Concentration - - Weight 76.2 kg (168 lb) 06/19/2020 8:52 AM PROCESS CONTROL SUPERVISOR Height 165.1 cm (5' 5 ) 06/19/2020 8:52 AM PROCESS CONTROL SUPERVISOR Body Mass Index 27.96 06/19/2020 8:52 AM PROCESS CONTROL SUPERVISOR Plan of Treatment Not on file Insurance [facility] CHOICE PLUS [employer] OOS Care Teams Manager Medical Writing Relationship Specialty Start Date End Date Bonifacio Rios MD [facility] - General 09/02/12 Ashley Shaffer MD [address] [place] [address] Obstetrics and Gynecology 03/28/17
--- OUTSIDE RECORDS SUMMARY | 2024-06-08 16:00 | XMS_ITS | Encounter Summary ---
Author Organization [facility] Address [address] [facility] [place] [address] Care Team Providers Care Arm Maker Name Role Phone Bonifacio Rios MD Primary Care Provider [phone] Ashley Shaffer MD Unavailable + [phone] Encounter Details Date Type Department Care Team (Late st Contact Info) Description 05/03/2020 Orders Only [facility] [address] [place] [address] Asya Choudhary, ATTORNEY [address] [address] Surveillance of previously prescribed contraceptive pill Social History Tobacco Use Types Packs/Day Years Used Date Smoking Tobacco: Never Smokeless Tobacco: Never Alcohol Use Standard Drinks/Week Comments Yes 0 (1 standard drink = 0.6 oz pur e alcohol) Comments No Sex and Gender Information Value Date Recorded Sex Assigned at Not on file Legal Sex Female 12:30 AM VEHICLE COST ENGINEER Gender Identity Not on file Sexual Orientation [...] documented as of this encounter Care Teams Arm Maker Relationship Specialty Start Date End Date Bonifacio Rios MD PCP - General 09/02/12 Ashley Shaffer MD [address] [place] [address] Obstetrics and Gynecology 03/28/17 documented as of this encounter
--- OUTSIDE RECORDS SUMMARY | 2024-06-08 16:00 | XMS_ITS | Encounter Summary ---
Author Organization [facility] Address [address] [facility] [facility] [address] [place] [address] Care Team Providers Care Terrazzo Layer Name Role Phone Bonifacio Rios MD Primary Care Provider + [phone] Ashley Shaffer MD Unavailable + [phone] Encounter Details Date Type Department Care Team (Late st Contact Info) Description 05/22/2018 Telephone [facility] 1 [place] [address] Bronwyn Feldman LPN Social History Tobacco Use Types Packs/Day Years Used Date Smoking Tobacco: Never Smokeless Tobacco: Never Alcohol Use Standard Drinks/Week Comments Yes 0 (1 standard drink = 0.6 oz pur e alcohol) Comments No Sex and Gender Information Value Date Recorded Sex Assigned at Not on file Legal Sex Female 12:30 AM LONGWALL SHEARER OPERATOR Gender Identity Not on file Sexual Orientation Not on file 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 WALL SHEARER OPERATOR * Telephone Encounter - Bronwyn Feldman LPN - 05/22/2018 8:26 AM LONGWALL SHEARER OPERATOR ----- Message from Ashley Shaffer MD sent at 05/21/2018 9:00 AM LONGWALL SHEARER OPERATOR ----- Normal pap. WALL SHEARER OPERATOR documented in this encounter Plan of Treatment Not on file documented as of this encounter Visit Diagnoses Not on filedocumented in this encounter Care Teams Terrazzo Layer Relationship Specialty Start Date End Date Bonifacio Rios MD PCP - General 09/02/12 Ashley Shaffer MD [address] [place] [address] Obstetrics and Gynecology 03/28/17 documented as of this encounter
--- OUTSIDE RECORDS SUMMARY | 2024-06-08 16:00 | XMS_ITS | Encounter Summary ---
Author Organization [facility] Address [address] [place] [address] Care Team Providers Care Pharmaceutical Development Technician Name Role Phone Bonifacio Rios MD Primary Care Provider [phone] Ashley Shaffer MD Unavailable + [phone] Reason for Visit * Reason Onset Date Comments Contraception 06/11/2019 Encounter Details Date Type Department Care Team (Late st Contact Info) Description 06/11/2019 Telephone [facility] [address] [place] [address] Asya Choudhary, LATENT PRINT EXAMINER [address] [place] [address] Contraception Social History Tobacco Use Types Packs/Day Years Used Date Smoking Tobacco: Never Smokeless Tobacco: Never Alcohol Use Standard Drinks/Week Comments Yes 0 (1 standard drink = 0.6 oz pur e alcohol) Comments No Sex and Gender Information Value Date Recorded Sex Assigned at Not on file Legal Sex Female 12:30 AM FOURCHETTE SEWER Gender Identity Not on file Sexual Orientation Not on file 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 Thanks. CHETTE SEWER * Telephone Encounter - Jeannine Rios - 06/11/2019 8:55 AM CST Pt called and has annual scheduled with Asya next week on but is due to start new pack of BCon Friday wanted to know if could get one more refill called in to corrie putnam please advise. CHETTE SEWER documented in this encounter Plan of Treatment Not on file documented as of this encounter Visit Diagnoses Not on filedocumented in this encounter Care Teams Pharmaceutical Development Technician Relationship Specialty Start Date End Date Bonifacio Rios MD PCP - General 09/02/12 Ashley Shaffer MD [address] [address] Obstetrics and Gynecology 03/28/17 documented as of this encounter
--- OUTSIDE RECORDS SUMMARY | 2024-06-08 16:00 | XMS_ITS | Encounter Summary ---
Author Organization [facility] Healthcare Address [address] [place] [address] Care Team Providers Care Screedman Name Role Phone Bonifacio Rios MD Primary Care Provider + [phone] Ashley Shaffer MD Unavailable + [phone] Reason for Visit * Diagnostic Lab (Routine) - Closed Specialty Diagnoses / Procedures Referred By James mitchell Referred To Contact Lab Diagnoses Cervical cancer screening Procedures Cytology Ashley Shaffer MD Phone: tel: fax: Referral ID Status Reason Start Date Expiration Date Visits Re quested Visits Authorized [id number] Closed 05/18/2018 11/27/2019 1 1 Encounter Details Date Type Department Care Team (Late st Contact Info) Description 05/19/2018 Orders Only [address] [address] Ashley Shaffer MD [address] [place] [id number] Cervical cancer screening Social History Tobacco Use Types Packs/Day Years Used Date Smoking Tobacco: Never Smokeless Tobacco: Never Alcohol Use Standard Drinks/Week Comments Yes 0 (1 standard drink = 0.6 oz pur e alcohol) Comments No Sex and Gender Information Value Date Recorded Sex Assigned at Not on file Legal Sex Female 12:30 AM CABLE INSTALLER REPAIRER HELPER Gender Identity Not on file Sexual Orientation Not on file 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 E INSTALLER REPAIRER HELPER documented in this encounter Plan of Treatment Not on file documented as of this encounter Procedures Procedure Name Priority Date/Time Associated Diagnosis Comments CYTOLOGY Routine 05/18/2018 12:30 PM CABLE INSTALLER REPAIRER HELPER Cervical cancer screening documented in this encounter Results * Cytology (05/18/2018 12:30 PM CABLE INSTALLER REPAIRER HELPER) Fluid 05/18/2018 12:3 0 PM CABLE INSTALLER REPAIRER HELPER 05/18/2018 12:30 PM CABLE INSTALLER REPAIRER HELPER Narrative PATHOLOGY - 05/20/2018 4:39 PM CABLE INSTALLER REPAIRER HELPER [facility] Department of Pathology [address] [place] [address] Final Report Patient Name: ??IMAN HORNKimberlyn Address: ??[address] [facility], ?? [place], [place] ??[address] Gender: ??F : ??1990 (Age: 27) Service: ??Laboratory Location: ??Lab Hospital #: ??[id number] Patient Type: ?? Ref Lab Taken: ??05/18/2018 [...] [place] as part of an ongoing quality liaison program and in compliance with federally mandated [...] characteristics determined by the Surgical Pathology Department [facility]. ??It has not been cleared or approved by the U. S. Food and Drug Administration. Ashley Shaffer MD LAB CYTOLOGY ORDERA BLES Final Result PATHOLOGY [address] [place] [address] documented in this encounter Visit Diagnoses Diagnosis Cervical cancer screening Screening for malignant neoplasm of the cervix documented in this encounter Care Teams Screedman Relationship Specialty Start Date End Date Bonifacio Rios MD PCP - General 09/02/12 Ashley Shaffer MD [address] [place] [address] Obstetrics and Gynecology 03/28/17 documented as of this encounter
--- OUTSIDE RECORDS SUMMARY | 2024-06-08 16:00 | XMS_ITS | Encounter Summary ---
Author Organization [facility] Address [address] [place] [address] Care Team Providers Care Membership Solicitor Name Role Phone Bonifacio Rios MD Primary Care Provider [phone] Ashley Shaffer MD Unavailable + [phone] Reason for Visit * Reason Onset Date Comments bcp refill request 05/03/2020 Encounter Details Date Type Department Care Team (Late st Contact Info) Description 05/03/2020 Telephone [facility] [address] [place] [address] Asya Choudhary CIRCUIT MANAGER [address] [address] bcp refill request Social History Tobacco Use Types Packs/Day Years Used Date Smoking Tobacco: Never Smokeless Tobacco: Never Alcohol Use Standard Drinks/Week Comments Yes 0 (1 standard drink = 0.6 oz pur e alcohol) Comments No Sex and Gender Information Value Date Recorded Sex Assigned at Not on file Legal Sex Female 12:30 AM STEAM FITTER SUPERVISOR Gender Identity Not on file Sexual Orientation Not on file 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 She uses the [facility] in [place] [facility]. CBN [phone] M FITTER SUPERVISOR documented in this encounter Plan of Treatment Not on file documented as of this encounter Visit Diagnoses Not on filedocumented in this encounter Care Teams Membership Solicitor Relationship Specialty Start Date End Date Bonifacio Rios MD PCP - General 09/02/12 Ashley Shaffer MD [address] [place] [address] Obstetrics and Gynecology 03/28/17 documented as of this encounter
--- OUTSIDE RECORDS SUMMARY | 2024-06-08 16:01 | XMS_ITS | Encounter Summary ---
Author Organization [facility] Address [address] [place] [address] Care Team Providers Care Tmr Teacher Name Role Phone Bonifacio Rios MD Primary Care Provider + [phone] Ashley Shaffer MD Unavailable [phone] Reason for Referral * Diagnostic Lab (Routine) - Closed Specialty Diagnoses / Procedures Referred By James mitchell Referred To Contact Lab Diagnoses Cervical cancer screening Procedures Cytology Ashley Shaffer MD Phone: tel: fax: Referral ID Status Reason Start Date Expiration Date Visits Re quested Visits Authorized [id number] Closed 05/18/2018 11/27/2019 1 1 ATIONS SUPERVISOR 2ND SHIFT Reason for Visit * Reason Comments Gynecologic Exam Encounter Details Date Type Department Care Team (Late st Contact Info) Description 05/18/2018 2:00 PM OPERATIONS SUPERVISOR 2ND SHIFT Office Visit [facility] [address] [place] [address] Ashley Shaffer MD [address] [place] [address] Encounter for gynecological examination (Primary [...] on file Legal Sex Female 12:30 AM OPERATIONS SUPERVISOR 2ND SHIFT Gender Identity Not on file Sexual Orientation Not on file 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 on file documented as of this encounter Last Filed Vital Signs Vital Sign Reading Time Taken Comments Blood Pressure 110/80 05/18/2018 1:52 PM OPERATIONS SUPERVISOR 2ND SHIFT Pulse - - Temperature - - Respiratory Rate - - Oxygen Saturation - - Inhaled Oxygen Concentration - - Weight 67.6 kg (149 lb) 05/18/2018 1:52 PM OPERATIONS SUPERVISOR 2ND SHIFT Height 162.6 cm (5' 4 ) 05/18/2018 1:52 PM OPERATIONS SUPERVISOR 2ND SHIFT Body Mass Index 25.58 05/18/2018 1:52 PM OPERATIONS SUPERVISOR 2ND SHIFT documented in this encounter Ordered Prescriptions Prescription [...] well-controlled with OCP's. She denies any other redrawer concerns. History: I have updated the EPIC [...] perineum: Intact. No visible lesions. Urethral meatus: [place], without prolapse or lesions. Vagina: [place], well-rugated. Cervix: [place]; os closed. No visible lesions. Friable. Uterus: No palpable abnormalities. Adnexa: No palpable masses or tenderness. Bladder and urethra: [place], without masses. Ashley Shaffer MD ATIONS SUPERVISOR 2ND SHIFT documented in this encounter Miscellaneous Notes * Addendum Note - Alecia Muhammad MA - 05/18/2018 2:00 PM CSTAddended by: ALECIA MUHAMMAD on: 05/18/2018 02:06 PM Modules accepted: Orders ATIONS SUPERVISOR 2ND SHIFT documented in this encounter Plan of Treatment Not on file documented as of this encounter Results * Cytology (05/18/2018 12:30 PM OPERATIONS SUPERVISOR 2ND SHIFT) Fluid 05/18/2018 12:3 0 PM OPERATIONS SUPERVISOR 2ND SHIFT 05/18/2018 12:30 PM OPERATIONS SUPERVISOR 2ND SHIFT Narrative PATHOLOGY CH - 05/20/2018 4:39 PM OPERATIONS SUPERVISOR 2ND SHIFT [facility] Department of Pathology [address] [place], [place] [id number] Final Report Patient Name: ??IMAN HORN Address: ??[facility] [address] [facility], ?? [place], [place] ??[address] Gender: ??F : ??1990 (Age: 27) Service: ??Laboratory Location: ??Lab Hospital #: ??[id number] Patient Type: ?? Ref Lab Taken: ??05/18/2018 [...] determined by the Surgical Pathology Department at [facility] as part of an ongoing quality assurance inspector program and in compliance with federally [...] determined by the Surgical Pathology Department [facility]. ??It has not been cleared or approved by the U. S. Food and Drug Administration. Ashley Shaffer MD LAB CYTOLOGY ORDERA BLES Final Result PATHOLOGY [address] [place] [address] documented in this encounter Visit [...] documented as of this encounter Care Teams Tmr Teacher Relationship Specialty Start Date End Date Bonifacio Rios MD PCP - General 09/02/12 Ashley Shaffer MD [address] [place] [address] Obstetrics and Gynecology 03/28/17 documented as of this encounter
--- OUTSIDE RECORDS SUMMARY | 2024-06-08 16:01 | XMS_ITS | Encounter Summary ---
Author Organization [facility] Healthcare Address [address] [place] [address] Care Team Providers Care Fabric Cutter Name Role Phone Bonifacio Rios MD Primary Care Provider [phone] Encounter Details Date Type Department Care Team (Late st Contact Info) Description 03/15/2016 7:46 PM CDT - 03/15/2016 11:59 PM CDT Hospital Encounter CH Ashley Bragg MD [address] [place] [phone] Encounter for screening for malignant neoplasm of cervix Social History Tobacco Use Types Packs/Day Years Used Date Smoking Tobacco: Never Alcohol Use Standard Drinks/Week Comments Yes 0 (1 standard drink = 0.6 oz pur e alcohol) Comments Unknown Sex and Gender Information Value Date Recorded Sex Assigned at Not on file Legal Sex Female 12:30 AM INTERNATIONAL PROJECT MANAGER Gender Identity Not on file [...] ORDERABLE S Final Result Performing Organization Address [facility] de Phone Number CDR HISTORICAL RESULTS * [...] ORDERABLE S Final Result Performing Organization Address [facility] Co de Phone Number CDR HISTORICAL RESULTS * Cytology (03/15/2016) Narrative 03/15/2016 Ordered by an unspecified provider. Historical Provider LAB CYTOLOGY ORDERABLES F inal Result documented in this encounter Visit Diagnoses Diagnosis Encounter for screening for malignant neoplasm of cervix documented in this encounter Care Teams Fabric Cutter Relationship Specialty Start Date End Date Bonifacio Rios MD PCP - General 09/02/12 documented as of this encounter
--- OUTSIDE RECORDS SUMMARY | 2024-06-08 16:01 | XMS_ITS | Encounter Summary ---
Author Organization [facility] Healthcare Address [address] [place] [address] Care Team Providers Care Property Consultant Name Role Phone Bonifacio Rios MD Primary Care Provider Encounter Details Date Type Department Care Team (Late st Contact Info) Description 12/13/2014 2:01 PM CDT - 12/13/2014 11:59 PM CDT Hospital Encounter CH Ashley Bragg MD [address] [place] [address] Exposure to sexually transmitted disease (STD) Social History Tobacco Use Types Packs/Day Years Used Date Smoking Tobacco: Never Alcohol Use Standard Drinks/Week Comments Yes 0 (1 standard drink = 0.6 oz pur e alcohol) Comments Unknown Sex and Gender Information Value Date Recorded Sex Assigned at Not on file Legal Sex Female 12:30 AM ROOF CEMENT AND PAINT MAKER HELPER Gender Identity Not on file Sexual Orientation Not on file documented as of this encounter Plan of Treatment Not on file documented as of this encounter Visit Diagnoses Diagnosis Exposure to sexually transmitted disease (STD) Contact with or exposure to venereal diseases documented in this encounter Care Teams Property Consultant Relationship Specialty Start Date End Date Bonifacio Rios MD PCP - General 09/02/12 documented as of this encounter
--- OUTSIDE RECORDS SUMMARY | 2024-06-08 16:01 | XMS_ITS | Encounter Summary ---
Author Organization [facility] Address [address] [place] [address] Phone Care Team Providers Care Movers Name Role Phone Bonifacio Rios MD Primary Care Provider + [phone] Ashley Shaffer MD Unavailable + [phone] Encounter Details Date Type Department Care Team (Late st Contact Info) Description 04/14/2017 Telephone [facility] [address] [place] [address] Bronwyn Feldman LPN Social History Tobacco Use Types Packs/Day Years Used Date Smoking Tobacco: Never Smokeless Tobacco: Never Alcohol Use Standard Drinks/Week Comments Yes 0 (1 standard drink = 0.6 oz pur e alcohol) Comments No Sex and Gender Information Value Date Recorded Sex Assigned at Not on file Legal Sex Female 12:30 AM DEGREASER OPERATOR Gender Identity Not on file Sexual Orientation Not on file 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 EASER OPERATOR * Telephone Encounter - Bronwyn Feldman LPN - 04/14/2017 10:02 AM DEGREASER OPERATOR ----- Message from Ashley Shaffer MD sent at 04/13/2017 7:57 AM DEGREASER OPERATOR ----- Normal pap. EASER OPERATOR documented in this encounter Plan of Treatment Not on file documented as of this encounter Visit Diagnoses Not on filedocumented in this encounter Care Teams Movers Relationship Specialty Start Date End Date Bonifacio Rios MD PCP - General 09/02/12 Ashley Shaffer MD [address] [place] [address] Obstetrics and Gynecology 03/28/17 documented as of this encounter
--- OUTSIDE RECORDS SUMMARY | 2024-06-08 16:01 | XMS_ITS | Encounter Summary ---
Author Organization [facility] Healthcare Address [address] [place] [address] Care Team Providers Care Stone Setter Apprentice Name Role Phone Bonifacio Rios MD Primary Care Provider [phone] Ashley Shaffer MD Unavailable + [phone] Encounter Details Date Type Department Care Team (Late st Contact Info) Description 04/04/2017 7:28 PM CDT - 04/04/2017 11:59 PM CDT Hospital Encounter CH OP INTERIM Ashley Shaffer MD [address] [place] [phone] Discharge Disposition: Discharge to home or self care Social History Tobacco Use Types Packs/Day Years Used Date Smoking Tobacco: Never Smokeless Tobacco: Never Alcohol Use Standard Drinks/Week Comments Yes 0 (1 standard drink = 0.6 oz pur e alcohol) Comments No Sex and Gender Information Value Date Recorded Sex Assigned at Not on file Legal Sex Female 12:30 AM CEMETERY WARDEN Gender Identity Not on file Sexual Orientation [...] BLOOD ORDERABLE S Final Result [facility] [address] [address] Department [place] [address] * Chlamydia DNA, Thin Prep (04/04/2017 7:29 [...] LAB BLOOD ORDERABLE S Final Result [facility] [address] Department [place] [address] * Cytology (04/04/2017 9:52 AM CDT) 04/04/2017 9:52 AM CDT 04/04/2017 9:52 AM CDT Narrative 04/08/2017 12:18 PM CDT [facility] Department of Pathology [address] [place], [place] [id number] Final Report ?Patient Name: IMAN HORN Address: [address] [place] [address] Service: Laboratory ??[place], [place] ??[id number] Location: Lab Taken: 04/04/2017 Gender: F Received 04/04/2017 : 1990 (Age: 26) Hospital #: [id number] Accessioned: 04/07/2017 ?? Patient Type: [facility] Lab Reported 04/08/2017 Physician(s): Dr. [...] by the Surgical Pathology Department at [facility] as part of an ongoing manager of quality program and in compliance with federally mandated [...] characteristics determined by the Surgical Pathology Department [facility]. ??It has not been cleared [...] on filedocumented in this encounter Care Teams Stone Setter Apprentice Relationship Specialty Start Date End Date Bonifacio Rios MD PCP - General 09/02/12 Ashley Shaffer MD [address] [place] [address] Obstetrics and Gynecology 03/28/17 documented as of this encounter
--- OUTSIDE RECORDS SUMMARY | 2024-06-08 16:01 | XMS_ITS | Encounter Summary ---
Author Organization [facility] Address [address] [place] [address] Phone Care Team Providers Care Front Sight Attacher Name Role Phone Bonifacio Rios MD Primary Care Provider [phone] Ashley Shaffer MD Unavailable [phone] Reason for Visit * Reason Comments Gynecologic Exam Encounter Details Date Type Department Care Team (Late st Contact Info) Description 04/04/2017 1:10 PM CDT Office Visit [facility] [address] [place] [address] Ashley Shaffer MD [address] [address] Encounter for gynecological examination (Primary Dx) Social History Tobacco Use Types Packs/Day Years Used Date Smoking Tobacco: Never Smokeless Tobacco: Never Tobacco Cessation:Counseling Given: Yes Alcohol Use Standard Drinks/Week Comments Yes 0 (1 standard drink = 0.6 oz pur e alcohol) Comments No Sex and Gender Information Value Date Recorded Sex Assigned at Not on file Legal Sex Female 12:30 AM UPTWIST SPINNER Gender Identity Not on file Sexual Orientation [...] to stay on these, and denies any histology aide concerns. 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 Smoking status: [...] perineum: Intact. No visible lesions. Urethral meatus: [place], without prolapse or lesions. Vagina: [place], well-rugated. Cervix: [place]; os closed. No visible lesions. Uterus: No [...] documented as of this encounter Care Teams Front Sight Attacher Relationship Specialty Start Date End Date Bonifacio Rios MD PCP - General 09/02/12 Ashley Shaffer MD [address] [place] [address] Obstetrics and Gynecology 03/28/17 documented as of this encounter
--- OUTSIDE RECORDS SUMMARY | 2024-06-08 16:01 | XMS_ITS | Encounter Summary ---
Author Organization [facility] Healthcare Address [address] [place] [address] Care Team Providers Care Direct Casting Operator Name Role Phone Bonifacio Rios MD Primary Care Provider Encounter Details Date Type Department Care Team (Late st Contact Info) Description 10/12/2013 3:23 PM CDT - 10/12/2013 11:59 PM CDT Hospital Encounter CH Ashley Bragg MD [address] [place] [address] Exposure to sexually transmitted disease (STD) Social History Tobacco Use Types Packs/Day Years Used Date Smoking Tobacco: Never Alcohol Use Standard Drinks/Week Comments Yes 0 (1 standard drink = 0.6 oz pur e alcohol) Comments Unknown Sex and Gender Information Value Date Recorded Sex Assigned at Not on file Legal Sex Female 12:30 AM ACTIVITIES CONCIERGE Gender Identity Not on file Sexual Orientation Not on file documented as of this encounter Plan of Treatment Not on file documented as of this encounter Visit Diagnoses Diagnosis Exposure to sexually transmitted disease (STD) Contact with or exposure to venereal diseases documented in this encounter Care Teams Direct Casting Operator Relationship Specialty Start Date End Date Bonifacio Rios MD PCP - General 09/02/12 documented as of this encounter
--- OUTSIDE RECORDS SUMMARY | 2024-06-08 16:01 | XMS_ITS | Encounter Summary ---
Author Organization [facility] Healthcare Address [address] [place] [address] Care Team Providers Care Heavy Truck Mechanic Name Role Phone Bonifacio Rios MD Primary Care Provider [phone] Ashley Shaffer MD Unavailable [phone] Encounter Details Date Type Department Care Team (Late st Contact Info) Description 05/19/2018 10:40 AM TURPENTINE FARMER Lab [address] [address] Social History Tobacco Use Types Packs/Day Years Used Date Smoking Tobacco: Never Smokeless Tobacco: Never Alcohol Use Standard Drinks/Week Comments Yes 0 (1 standard drink = 0.6 oz pur e alcohol) Comments No Sex and Gender Information Value Date Recorded Sex Assigned at Not on file Legal Sex Female 12:30 AM TURPENTINE FARMER Gender Identity Not on file Sexual Orientation Not on file 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
--- OUTSIDE RECORDS SUMMARY | 2024-06-08 16:01 | XMS_ITS | Encounter Summary ---
Author Organization [facility] Healthcare Address [address] [place] [address] Care Team Providers Care Dust Brush Assembler Name Role Phone Bonifacio Rios MD Primary Care Provider [phone] Encounter Details Date Type Department Care Team (Late st Contact Info) Description 10/12/2013 8:00 PM CDT - 10/12/2013 11:59 PM CDT Hospital Encounter [facility] Ashley Bragg MD [address] [place] [address] Screening for malignant neoplasm of cervix Social History Tobacco Use Types Packs/Day Years Used Date Smoking Tobacco: Never Alcohol Use Standard Drinks/Week Comments Yes 0 (1 standard drink = 0.6 oz pur e alcohol) Comments Unknown Sex and Gender Information Value Date Recorded Sex Assigned at Not on file Legal Sex Female 12:30 AM SUPERVISORY EXAMINER Gender Identity Not on file Sexual Orientation [...] S Final Result Performing Organization Address [facility] Phone Number HISTORICAL RESULTS * Genital fluid [...] S Final Result Performing Organization Address [facility] de Phone Number HISTORICAL RESULTS * Cytology (10/12/2013) Narrative 10/12/2013 Ordered by an unspecified provider. [facility] Provider LAB CYTOLOGY ORDERABLES F inal Result documented in this encounter Visit Diagnoses Diagnosis Screening for malignant neoplasm of cervix Screening for malignant neoplasm of the cervix documented in this encounter Care Teams Dust Brush Assembler Relationship Specialty Start Date End Date Bonifacio Rios MD PCP - General 09/02/12 documented as of this encounter
--- OUTSIDE RECORDS SUMMARY | 2024-06-08 16:01 | XMS_ITS | Encounter Summary ---
Author Organization [facility] Healthcare Address [address] [place] [address] Care Team Providers Care Steel Manager Name Role Phone Bonifacio Rios MD Primary Care Provider [phone] Encounter Details Date Type Department Care Team (Late st Contact Info) Description 12/13/2014 6:36 PM CDT - 12/13/2014 11:59 PM CDT Hospital Encounter [facility] Ashley Bragg MD [address] [place] [address] Screening for malignant neoplasm of cervix Social History Tobacco Use Types Packs/Day Years Used Date Smoking Tobacco: Never Alcohol Use Standard Drinks/Week Comments Yes 0 (1 standard drink = 0.6 oz pur e alcohol) Comments Unknown Sex and Gender Information Value Date Recorded Sex Assigned at Not on file Legal Sex Female 12:30 AM HEARING AND SPEECH ASSISTANT Gender Identity Not on file Sexual [...] ORDERABLE S Final Result Performing Organization Address [place] Phone Number HISTORICAL RESULTS * [...] ORDERABLE S Final Result Performing Organization Address [place] de Phone Number HISTORICAL RESULTS * Cytology (12/13/2014) Narrative 12/13/2014 Ordered by an unspecified provider. [facility] Provider LAB CYTOLOGY ORDERABLES F inal Result documented in this encounter Visit Diagnoses Diagnosis Screening for malignant neoplasm of cervix Screening for malignant neoplasm of the cervix documented in this encounter Care Teams Steel Manager Relationship Specialty Start Date End Date Bonifacio Rios MD PCP - General 09/02/12 documented as of this encounter
== END 2024-06-01 10:15 | disposition home or self-care (01) ==
PROVIDERS: Emergency Provider Nurse Practitioner; PCP Family Medicine
DX: H73.893 Other specified disorders of tympanic membrane, bilateral (principal)
CPT/HCPCS: 99213; G0463